=== PATIENT | female | born 1965 | race Caucasian/White ===

== ENCOUNTER 2018-02-01 16:08 | Emergency (ER) | payer OTHER, SELFPAY ==
--- NOTE | 2018-02-01 16:20 | DI.CT.S_ITS ---
PROCEDURE: CT HEAD/BRAIN WO CON INDICATIONS: stroke symptoms TECHNIQUE: Noncontrast 4.5 mm thick angled axial sections acquired from the foramen magnum to the vertex, with coronal and sagittal reformats. For radiation dose reduction, the following was used: automated exposure control, adjustment of mA and/or kV according to patient size. COMPARISON: None. FINDINGS: Image quality: Excellent. CSF spaces: Basal cisterns are patent. No extra-axial fluid collections. Ventricles are normal in size and shape. Brain: No midline shift. No intracranial masses or hemorrhage. Sigala-white matter interface is normal. Skull and face: Calvarium and visualized facial bones are intact, without suspicious lesions. Sinuses: Visualized sinuses and mastoids are clear. IMPRESSION: No acute intracranial process. 1 cm left parietal scalp subcutaneous nodule with calcification, nonspecific. Please correlate clinically and with direct visual inspection. Dictated by: Narinder Sandoval M.D. on 02/01/2018 at 16:24 Approved by: Narinder Sandoval M.D. on 02/01/2018 at 16:26
[2018-02-01 16:22] VITALS: BP 207/105; PULSE 88; RESP 17; TEMP 36.9; O2SAT 100; BMI 34.4
--- NOTE | 2018-02-01 16:41 | DI.US.S_ITS ---
PROCEDURE: US CAROTID DOPPLER BI INDICATIONS: TIA TECHNIQUE: Color and pulse Doppler interrogation was performed of both carotid systems, with image documentation and velocity measurements. COMPARISON: [facility], CT, CT HEAD/BRAIN WO CON, 02/01/2018, 16:10. FINDINGS: Stenosis calculations are based on SRU (Society of Radiologists in Ultrasound) criteria. The flow velocities and the arterial waveforms are normal within both carotid arterial systems. The estimated degree of internal carotid artery stenosis is less than 50%. Antegrade flow is confirmed within both vertebral arteries. IMPRESSION: No hemodynamically significant stenosis is seen. Dictated by: Isidro Eid M.D. on 02/01/2018 at 16:24 Approved by: Isidro Eid M.D. on 02/01/2018 at 16:24
[2018-02-01 16:49] VITALS: BP 170/94; PULSE 84; RESP 17; O2SAT 100
[2018-02-01 16:50] LABS: Add Manual Diff / Slide Review NO; Basophils Percent Auto 0.8 % (0-2); Eosinophils Percent Auto 2.5 % (2-4); Hematocrit 42.4 % (36-46); Hemoglobin 14.9 g/dL (12.0-16.0); Lymphocytes Percent Auto 24.7 % (25-40); Mean Corpuscular HGB Conc 35.2 % (30-36); Mean Corpuscular Hemoglobin 30.7 PG (26-34); Mean Corpuscular Volume 87.3 fL (80-100); Monocytes Percent Auto 7.6 % (3-14); Neutrophils Absolute Auto 6200 /uL (3000-5900); Neutrophils Percent Auto 64.4 % (50-75); Platelet Count 237 X10^3/uL (150-400); Red Blood Cell Count 4.86 X10^6/uL (4.0-5.2); Red Cell Distribution Width 12.7 % (11.6-14.8); White Blood Cell Count 9.7 X10^3/uL (4.5-11.0)
[2018-02-01 16:51] LABS: INR 1.4 (0.9-1.3); Prothrombin Time 15.3 SECONDS (10.1-12.7)
[2018-02-01 16:55] LABS: Alanine Aminotransferase 41 IU/L (9-52); Albumin Globulin Ratio 1.5 (1.0-2.8); Alkaline Phosphatase 106 U/L (38-126); Aspartate Aminotransferase 32 IU/L (14-36); BUN Creatinine Ratio 24.3 (6-22); Bilirubin Total 0.7 mg/dL (0.2-1.3); Blood Urea Nitrogen 17 mg/dL (7-17); Calcium 9.6 mg/dL (8.4-10.2); Carbon Dioxide 27 mmol/L (22-32); Chloride 101 mmol/L (98-107); Estimated Glomerular Filt Rate > 60.0 mL/min (>60); Globulin 3.3 g/dL (1.7-4.1); Glucose 99 mg/dL (70-100); HEMOLYSIS < 15 (0-50); Potassium 4.2 mmol/L (3.4-5.1); Sodium 142 mmol/L (137-145); Total Protein 8.3 g/dL (6.3-8.2)
--- NOTE | 2018-02-01 17:07 | ED.NEUROSD ---
HPI - Neuro Symptoms/Deficit General Chief Complaint: Neuro Symptoms/Deficit Stated Complaint: tingling sensations right side of body Time Seen by Provider: 02/01/18 16:19 Source: patient Mode of arrival: ambulatory Limitations: no limitations History of Present Illness HPI Narrative: Patient states she was driving her car, when she began to notice a sharp pain in her right shoulder. This occurred about 45 min ago. Patient states she got a tingling sensation in her hand and also tingling sensation in her right toes. She states it felt as though her toes were cramping up. She states that then her arm began to feel weak. She denies any other neurologic symptoms. No facial weakness, difficulty speaking or swallowing, or visual changes. She did not have any left-sided symptoms. She did not have any trouble with her gait. She does note that it was difficult for her to completely hold onto things for a few minutes. She states that she is now feeling mostly better, although she has a slight feeling of tingling in her fingers and that her shoulder still hurts somewhat. She denies any nausea or vomiting; no right upper quadrant abdominal pain. No chest pain or shortness of breath. Patient has never had symptoms like this before. She states that she has no personal history of illness. She states she does have a grandfather who had a stroke but otherwise, no primary relatives with either coronary artery disease or cerebral vascular accident at any level. On Anticoagulants: No Related Data Previous Rx's Medication Instructions Recorded meloxicam 15 mg tablet 15 mg PO [facility] #30 tab 11/01/17 Allergies Allergy/AdvReac Type Severity Reaction Status Date / Time erythromycin base Allergy Mild Unverified 08/31/17 13:00 Review of Systems Review of Systems All systems reviewed & are unremarkable except as noted in HPI and below Constitutional Denies chills, Denies fever(s), Denies lethargy and Reports weakness (Right arm now resolved) Eyes Denies change in vision, Denies eye discharge, Denies irritation and Denies loss of vision ENT Ears, Nose, Mouth, and Throat: Denies change in voice, Denies neck pain and Denies sore throat Cardiovascular Denies chest pain, Denies irregular heart rhythm, Denies lightheadedness, Denies palpitations, Denies dyspnea, Denies dyspnea on exertion and Denies orthopnea Respiratory Denies cough, Denies dyspnea, Denies dyspnea on exertion and Denies wheezing Gastrointestinal Gastrointestinal: Denies abdominal pain, Denies change in bowel habits, Denies diarrhea, Denies nausea and Denies vomiting Genitourinary Denies hematuria, Denies flank pain, Denies urinary incontinence and Denies urinary urgency Musculoskeletal Denies neck pain Comments: Right shoulder pain Integumentary/Breasts Denies pruritus, Denies erythema, Denies rash and Denies wounds Neurologic Denies confusion, Denies loss of vision and Reports weakness (Right arm now resolved) Psychiatric Denies anxiety, Denies confusion, Denies depression, Denies homicidal ideation and Denies suicidal ideation Endocrine Denies palpitations Hematologic/Lymphatic Denies easy bruising Allergic/Immunologic Denies wheezing FOR[facility]LY [facility] Medical History Healthy adult (Acute) Surgical History History of hip replacement (02/10/05) History of hip replacement (07/12/07) Status post delivery Status post delivery Status post sclerotherapy of varicose veins Status post tonsillectomy and adenoidectomy Social History Smoking Status: Never smoker Exam Initial Vital Signs Initial Vital Signs: Vital Signs Temperature 98.4 F 02/01/18 16:22 Pulse Rate 88 02/01/18 16:22 Respiratory Rate 17 02/01/18 16:22 Blood Pressure 207/105 H 02/01/18 16:22 Pulse Oximetry 100 02/01/18 16:22 Const General: cooperative and well developed Nutritional Appearance: well nourished Orientation: alert, awake, oriented x3 and not confused [facility] Head: normocephalic and atraumatic Ears: external ears normal Nose: external nose normal and No nasal discharge Face and sinus: face symmetric and No dry mucous membranes Mouth: oral mucosae normal and moist mucous membranes Eyes General: appearance normal, both eyes and all related structures Eyelids: eyelids normal Conjunctivae: conjunctivae normal Sclera: sclerae normal Pupils: PERRL EOM: EOM intact bilaterally Neck Neck: normal visual inspection, trachea midline, No lymphadenopathy, No midline deformity and No JVD Lymphatic: No lymphedema Chest Chest: normal inspection of the chest Resp Effort & Inspection: normal respiratory effort, able to speak in complete sentences, no respiratory distress and no use of accessory muscles Auscultation: clear to auscultation bilaterally, no rales, no rhonchi and no wheezes Cardio Rate: regular rate Rhythm: regular rhythm Heart Sounds: no click, no gallops, no murmurs and no rubs Pulses: normal peripheral pulses GI Inspection: non-distended Palpation: soft, no hepatosplenomegaly, No guarding, No pulsatile mass and No tender Auscultation: normal bowel sounds Back/Spine/Pelvis Back: No CVA tenderness Cervical Spine: cervical ROM normal and No pain with cervical ROM Thoracic/Lumbar Spine: thoracic and lumbar spine normal to inspection Skin General: no rashes or lesions noted, No jaundice and No petechiae Neuro General: alert, awake, oriented x3, gait normal, moves all extremities and no focal motor deficits Cranial Nerves: EOM intact bilaterally Cognition: normal cognition Speech: speech normal Motor: muscle tone normal throughout and strength 5/5 throughout Sensory Exam: no sensory deficits noted Extrem General: full ROM, no clubbing, cyanosis or edema, no pedal edema and no calf tenderness Psych Appearance: well kempt Mental Status: mental status grossly normal Attitude: cooperative Thought Content: normal and suicidality Judgment: judgment good Course Course Narrative: This patient was evaluated upon arrival by myself as a code stroke. She was immediately sent for CT of the head, which was found to be negative. Patient's symptoms were already mostly resolved, and had been mild did begin with, and as such, she was not a candidate for tPA. Patient was worked up with laboratory studies, as well as CT, and these were found to be unremarkable. I did go ahead and get a carotid ultrasound on the patient which showed no significant blockages. I did discuss with the patient that her symptoms are atypical for a stroke and that the shoulder pain would be unexpected. It is possible the patient has a nerve impingement which has caused her pain, paresthesias, and neurapraxia; however, I have discussed with the patient that it is important for her to follow up with her primary care physician to get set up for an echocardiogram to complete the stroke workup. Given that the patient has no murmurs or irregular heart beat, I feel that it is unlikely that the patient has any sort of plaque or thrombosis harbored in her chambers or on her valves. Patient is advised that she should take an aspirin a day for preventative purposes. She states she will call her primary care physician tomorrow. Orders Ordered: ED Orders 02/01/18 16:20 CT head/brain wo con Stat 02/01/18 16:30 Complete Blood Count AUTO DIFF Stat Comprehensive Metabolic Panel Stat Prothrombin Time INR Stat 02/01/18 16:41 US carotid doppler BI Stat Vital Signs - 8 hr 02/01/18 16:22 02/01/18 16:49 Temperature 98.4 F Pulse Rate 88 84 Respiratory Rate 17 17 Blood Pressure 207/105 H Blood Pressure [Right Arm] 170/94 H Pulse Oximetry 100 100 MDM - Neuro Symptoms/Deficit Medical Records Attestation: I reviewed the patient's medical records. Lab Data Attestation: I reviewed the patient's lab results. Result diagrams: 02/01/18 16:30 02/01/18 16:30 Lab Results 02/01/18 02/01/18 02/01/18 Range/Units 16:30 16:30 16:30 WBC 9.7 (4.5-11.0) X10^3/uL RBC 4.86 (4.0-5.2) X10^6/uL Hgb 14.9 (12.0-16.0) g/dL Hct 42.4 (36-46) % MCV 87.3 (80-100) fL MCH 30.7 (26-34) PG MCHC 35.2 (30-36) % RDW 12.7 (11.6-14.8) % Plt Count 237 (150-400) X10^3/uL Neut % (Auto) 64.4 (50-75) % Lymph % (Auto) 24.7 L (25-40) % Pitkin % (Auto) 7.6 (3-14) % Eos % (Auto) 2.5 (2-4) % Baso % (Auto) 0.8 (0-2) % Neut # (Auto) 6200 H (5105-5679) /uL PT 15.3 H (10.1-12.7) SECONDS INR 1.4 H (0.9-1.3) Sodium 142 (137-145) mmol/L Potassium 4.2 (3.4-5.1) mmol/L Chloride 101 (98-107) mmol/L Carbon Dioxide 27 (22-32) mmol/L BUN 17 (7-17) mg/dL Creatinine 0.70 (0.52-1.04) mg/dL Estimated GFR > 60.0 (>60) mL/min BUN/Creatinine Ratio 24.3 H (6-22) Glucose 99 (70-100) mg/dL Calcium 9.6 (8.4-10.2) mg/dL Total Bilirubin 0.7 (0.2-1.3) mg/dL AST 32 (14-36) IU/L ALT 41 (9-52) IU/L Alkaline Phosphatase 106 (38-126) U/L Total Protein 8.3 H (6.3-8.2) g/dL Albumin 5.0 (3.5-5.0) g/dL Globulin 3.3 (1.7-4.1) g/dL Albumin/Globulin Ratio 1.5 (1.0-2.8) Imaging Data CT scan - head: Attestation: I personally reviewed and interpreted this imaging study as follows: My impression: Negative Radiologist's impression: PROCEDURE: CT HEAD/BRAIN WO CON INDICATIONS: stroke symptoms TECHNIQUE: Noncontrast 4.5 mm thick angled axial sections acquired from the foramen magnum to the vertex, with coronal and sagittal reformats. For radiation dose reduction, the following was used: automated exposure control, adjustment of mA and/or kV according to patient size. COMPARISON: None. FINDINGS: Image quality: Excellent. CSF spaces: Basal cisterns are patent. No extra-axial fluid collections. Ventricles are normal in size and shape. Brain: No midline shift. No intracranial masses or hemorrhage. Sigala-white matter interface is normal. Skull and face: Calvarium and visualized facial bones are intact, without suspicious lesions. Sinuses: Visualized sinuses and mastoids are clear. IMPRESSION: No acute intracranial process. 1 cm left parietal scalp subcutaneous nodule with calcification, nonspecific. Please correlate clinically and with direct visual inspection. Dictated by: Narinder Sandoval M.D. on 02/01/2018 at 16:24 Approved by: Narinder Sandoval M.D. on 02/01/2018 at 16:26 Carotid Doppler: Radiologist's impression: PROCEDURE: US CAROTID DOPPLER BI INDICATIONS: TIA TECHNIQUE: Color and pulse Doppler interrogation was performed of both carotid systems, with image documentation and velocity measurements. COMPARISON: [facility], CT, CT HEAD/BRAIN WO CON, 02/01/2018, 16:10. FINDINGS: Stenosis calculations are based on SRU (Society of Radiologists in Ultrasound) criteria. The flow velocities and the arterial waveforms are normal within both carotid arterial systems. The estimated degree of internal carotid artery stenosis is less than 50%. Antegrade flow is confirmed within both vertebral arteries. IMPRESSION: No hemodynamically significant stenosis is seen. Dictated by: Isidro Eid M.D. on 02/01/2018 at 16:24 Approved by: Isidro Eid M.D. on 02/01/2018 at 16:24 Discharge Plan Departure Patient Disposition: Home Clinical Impression: Acute shoulder pain, Arm paresthesia, right, Weakness of right arm Discharge Date/Time: 02/01/18 17:58 Interventions: ED Discharge Assessment Last Done: 02/01/18 17:57 Instructions: DI for Transient Ischemic Attack, DI for Shoulder Pain Activity Restrictions/Additional Instructions: Your symptoms are not typical of a heart attack or a stroke; however, given that you did have the weakness of your right arm, you have been worked up initially for the possibility of a small, transient stroke. So far, testing has all been normal. There is no sign of any blockage in your carotid arteries, and there is no evidence of damage to your brain. However, it is important that you follow up with your primary doctor to discuss the possibility of getting and echocardiogram (heart ultrasound), which will show any blood clots that may be breaking loose and going to your brain. Given that you have no irregular heartbeat or heart murmur, the likelihood of blood clots being present is low, but needs to be checked out just to be sure. Prescriptions: No Action meloxicam [Mobic] 15 mg tablet 15 mg PO [facility] Qty: 30 RF: 2 Referrals: Katarzyna Dunne ARNP [Primary Care Provider] - ( Please call your doctor's office tomorrow morning to set up a follow-up appointment , and discuss getting an echocardiogram.)
[2018-02-01 17:23] VITALS: BP 127/73; PULSE 74; RESP 13; O2SAT 99
[2018-02-01 17:57] VITALS: BP 147/89; PULSE 74; RESP 15; TEMP 36.4; O2SAT 100
== END 2018-02-01 17:58 | disposition home or self-care (01) ==
PROVIDERS: Emergency Provider Emergency Medicine; Family Provider Internal Medicine; PCP Internal Medicine
DX: M25.511 Pain in right shoulder (principal); R20.2 Paresthesia of skin; R29.898 Other symptoms and signs involving the musculoskeletal system
CPT/HCPCS: 36591; 70450; 80053; 85025; 85610; 93005; 93041; 93880; 99283; 99285; 99291

== ENCOUNTER → 2018-02-13 10:42 | Outpatient (CLI) | payer OTHER, SELFPAY ==
[2018-02-13 11:36] LABS: Cholesterol 214 mg/dL (140-199); HDL Cholesterol 52 mg/dL (40-60); LDL Cholesterol Calculated 128 mg/dL (<100); Triglycerides 170 mg/dL (35-150)
[2018-02-13 12:02] LABS: Thyroid Stimulating Hormone 0.92 uIU/mL (0.47-4.68)
== END ==
PROVIDERS: Family Provider Internal Medicine; PCP Internal Medicine; Visit Provider Internal Medicine
DX: E78.5 Hyperlipidemia, unspecified (principal)
CPT/HCPCS: 36415; 80061; 84443

== ENCOUNTER → 2018-06-12 13:24 | Outpatient (CLI) | payer OTHER, SELFPAY ==
--- NOTE | 2018-06-12 | DI.MG.S_ITS ---
BILATERAL DIGITAL SCREENING MAMMOGRAM 3D/2D WITH CAD: 06/12/2018 CLINICAL: Routine screening. Comparison is made to exams dated: 05/06/2017 mammogram, 04/07/2015 mammogram, and 04/01/2014 mammogram - [facility]. There are scattered fibroglandular elements in both breasts. Current study was also evaluated with a Computer Aided Detection (CAD) system. There are benign calcifications in both breasts. No significant masses, calcifications, or other findings are seen in either breast. There has been no significant interval change. IMPRESSION: There is no mammographic evidence of malignancy. A 1 year screening mammogram is recommended. This exam was interpreted at Station ID: [id number]. NOTE: For mammograms, a report in lay terms will be sent to the patient. Approximately 15% of breast malignancies will not be visualized mammographically. In the management of a palpable breast mass, a negative mammogram must not discourage biopsy of a clinically suspicious lesion. Electronically Signed By: Lyle roberts/ced:06/13/2018 01:39:32 letter sent: Normal Exam ACR BI-RADS Category 2: Benign Finding(s) 3342F
== END ==
PROVIDERS: Family Provider Internal Medicine; PCP Internal Medicine; Visit Provider Internal Medicine
DX: Z12.31 Encounter for screening mammogram for malignant neoplasm of breast (principal)
CPT/HCPCS: 77063; 77067

== ENCOUNTER → 2018-10-20 14:54 | Outpatient (CLI) | payer OTHER, SELFPAY ==
--- NOTE | 2018-10-20 14:56 | DI.RAD.S_ITS ---
PROCEDURE: XR CHEST 2V INDICATIONS: Cough with fever TECHNIQUE: 2 views of the chest were acquired. COMPARISON: None. FINDINGS: Surgical changes and devices: None. Lungs and pleura: Lungs are clear. No pleural effusions or pneumothorax. Mediastinum: Mediastinal contours are normal. Heart size is normal. Bones and chest wall: No suspicious bony abnormalities. Soft tissues appear unremarkable. IMPRESSION: No acute disease Dictated by: Narinder Sandoval M.D. on 10/20/2018 at 14:19 Approved by: Narinder Sandoval M.D. on 10/20/2018 at 14:21
== END ==
PROVIDERS: Family Provider Internal Medicine; PCP Internal Medicine; Visit Provider Registered Nurse
DX: R05 Cough (principal); R50.9 Fever, unspecified
CPT/HCPCS: 71046

== ENCOUNTER → 2018-12-20 09:16 | Outpatient (CLI) | payer OTHER, SELFPAY ==
[2018-12-20 10:35] LABS: BUN Creatinine Ratio 23.3 (6-22); Blood Urea Nitrogen 14 mg/dL (7-17); Calcium 9.6 mg/dL (8.4-10.2); Carbon Dioxide 30 mmol/L (22-32); Chloride 103 mmol/L (98-107); Cholesterol 221 mg/dL (140-199); Estimated Glomerular Filt Rate > 60.0 mL/min (>60); Glucose 92 mg/dL (70-100); HDL Cholesterol 46 mg/dL (40-60); HEMOLYSIS < 15 (0-50); LDL Cholesterol Calculated 127 mg/dL (<100); Potassium 4.7 mmol/L (3.4-5.1); Sodium 142 mmol/L (137-145); Triglycerides 238 mg/dL (35-150)
[2018-12-20 11:01] LABS: Thyroid Stimulating Hormone 2.02 uIU/mL (0.47-4.68)
== END ==
PROVIDERS: PCP Registered Nurse; Visit Provider Registered Nurse
DX: Z00.00 Encounter for general adult medical examination without abnormal findings (principal)
CPT/HCPCS: 36415; 80048; 80061; 84443

== ENCOUNTER → 2019-10-22 16:12 | Outpatient (CLI) | payer OTHER, SELFPAY ==
--- NOTE | 2019-10-22 16:17 | DI.RAD.S_ITS ---
PROCEDURE: XR CHEST 2V INDICATIONS: SHORTNESS OF BREATH,SMOKER TECHNIQUE: 2 views of the chest were acquired. COMPARISON: [facility], CR, XR CHEST 2V, 10/20/2018, 14:59. FINDINGS: Surgical changes and devices: None. Lungs and pleura: Lungs are clear, aside from minimal linear radiodensities involving the left lung base.. No pleural effusions or pneumothorax. Mediastinum: Mediastinal contours are normal. Heart size is normal. Bones and chest wall: No suspicious bony abnormalities. Soft tissues appear unremarkable. IMPRESSION: Linear radiodensities involving the left lung base which may be related to scarring; however atelectasis or developing pneumonia cannot be excluded and close clinical correlation and followup is recommended. Comparison with remote radiographs if available would be helpful. Dictated by: Pelon Morris [facility] Interpreted: Chad Rutherford MD on 10/22/2019 at 16:54 Approved by: Chad Rutherford M.D. on 10/22/2019 at 17:06
== END ==
PROVIDERS: PCP Registered Nurse; Referring Provider Internal Medicine; Visit Provider Internal Medicine
DX: R06.02 Shortness of breath (principal); F17.200 Nicotine dependence, unspecified, uncomplicated
CPT/HCPCS: 71046

== ENCOUNTER 2020-05-14 13:45 | Outpatient (RCR) | payer OTHER, SELFPAY ==
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
--- NOTE | 2020-02-26 15:08 | PT.OPPOC ---
Physical, Occupational & Speech Therapy At [facility] Current Diagnoses Displaced fracture of body of scapula, left shoulder, subsequent encounter for fracture with routine healing (02/26/20) Displaced spiral fracture of shaft of humerus, left arm, subsequent encounter for fracture with routine healing (02/26/20) Visit Care Team Role Provider Type LUDWIG Almanza Primary Care Provider Advanced Sales Representative [facility] Specialty: [facility] Address: [facility], [facility] [place], [address] Email: [email or web address] LUDWIG Pinon Attending Provider Non-Staff Referring Provider Specialty: [facility] Address: [address] [place] [address], [place], [address] Email: Plan Of Care PT-OP-T Assessment and Plan Start: 02/26/20 07:53 Freq: Status: Active Protocol: Document 02/26/20 12:45 AMB (Rec: 02/27/20 11:57 AMB [email or web address]) Physical Therapy Assessment Rehab Potential Rehabilitation Potential Good Evaluation Complexity Number of Personal Factors/Comorbidities 3 or More Number of Body Systems Impaired 4 or More Clinical Presentation at Evaluation Unstable Impairments Impairments Activity Tolerance,Edema, Functional Activities,Pain, Posture,ROM,Strength Goals Three Impairment Elbow ROM Short Term Goal (STG) Samanta will attain neutral elbow extension STG Duration 4 weeks Two Impairment Shoulder strength Skilled Nursing Goal (LTG) Samanta will lift a coffee cup to shoulder height. LTG Duration 12 weeks One Impairment Shoulder ROM Short Term Goal (STG) Samanta will have 90 degrees of passive shoulder flexion STG Duration 6 weeks Skilled Nursing Goal (LTG) Samanta will have 90 degrees of active shoulder flexion. LTG Duration 12 weeks Assessment Summary Assessment Samanta attends physical therapy with current displaced humerus fracture and a scapular fracture that was originally displaced and is now healed per patient report. Unfortunately I have been unable to get any records or protocol, so we did not assess her shoulder range. We did work on her scapular mobility and elbow stretches. When safe to do so, Samanta will need considerable shoulder stretching and strengthening. Currently she has been told not to lift anything more than the weight of a coffee cup, she thinks this is more due to her hand fracture than her shoulder. Physical Therapy Plan Frequency and Duration Frequency of Treatment 2x/Week Duration of Treatment 12 weeks Plan of Care Start Date 02/26/20 Plan of Care End Date 05/20/20 Therapeutic Interventions Therapeutic Interventions Home Exercise Program,Joint Mobilizations,Manual Therapy, Neuromuscular Re-education, Therapeutic Activities, Therapeutic Exercises Modalities Cold Pack/Ice Massage,Electric Stimulation,Hot Packs, Ultrasound Next Visit Focus/Plan Next Note Type Treatment Note Next Visit Plan Get notes/protocol from referring provider to assess if we can start with PROM of shoulder. JORGE SOW: PLEASE CALL THIS THERAPIST AT [phone]. I have tried to get medical records and call your office, but was put on hold for over 20 minutes and had to hang up to see patients . I need more information before treating this patient. I do not have access to any records. Plan of Care Dates Plan of Care Start Date 02/26/20 Plan of Care End Date 05/20/20 Electronically Signed by: Paula Huff, PT 02/27/20 0818 Please Sign and Return: I have reviewed this Plan of Care and certify that the skilled therapy services above are required to meet the patient?s needs. Physician Signature Date Printed Name and Credentials Clinical Instructor Signature Printed Name and Credentials
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
--- NOTE | 2020-04-23 14:00 | PT.OPPOC ---
Physical, Occupational & Speech Therapy At [facility] Current Diagnoses Displaced fracture of body of scapula, left shoulder, subsequent encounter for fracture with routine healing (04/23/20) Displaced spiral fracture of shaft of humerus, left arm, subsequent encounter for fracture with routine healing (04/23/20) Visit Care Team Role Provider Type LUDWIG Almanza Primary Care Provider Advanced Claim Representative Specialty: [facility] Address: [facility] [place], [address] Email: [email or web address] LUDWIG Pinon Attending Provider Non-Staff Referring Provider Specialty: [facility] Address: [address] [place] [address], [place], [address] Email: Plan Of Care PT-OP-T Assessment and Plan Start: 02/26/20 07:53 Freq: Status: Active Protocol: Document 04/23/20 12:45 AMB (Rec: 04/24/20 08:15 AMB [email or web address]) Physical Therapy Assessment Goals Three Impairment Elbow ROM Short Term Goal (STG) Samanta will attain neutral elbow extension STG Duration MET Two Impairment Shoulder strength [employer] Hand Goal (LTG) Samanta will lift a coffee cup to shoulder height.-- NOT MET- not currently allowed to do so because of fracture precautions LTG Duration 12 weeks One Impairment Shoulder ROM Short Term Goal (STG) Samanta will have 90 degrees of passive shoulder flexion STG Duration MET [employer] Hand Goal (LTG) Samanta will have 90 degrees of active shoulder flexion. LTG Duration 12 weeks Assessment Summary Assessment Samanta's ROM is fairly similar to what it was at [facility], although considering she is still wearing her brace, not allowed active movement, the fact that her ROM is not worse is reassuring. She will benefit from continued PT to continue to prevent adhesive capsulitis, try to progress her PROM as she can tolerate until she sees her doctor again at the end of May. Physical Therapy Plan Frequency and Duration Frequency of Treatment 2x/Week Duration of Treatment 12 weeks Plan of Care Start Date 04/23/20 Plan of Care End Date 07/16/20 Therapeutic Interventions Therapeutic Interventions Home Exercise Program,Joint Mobilizations,Manual Therapy, Neuromuscular Re-education, Therapeutic Activities, Therapeutic Exercises Modalities Cold Pack/Ice Massage,Electric Stimulation,Hot Packs, Ultrasound Next Visit Focus/Plan Next Note Type Treatment Note Next Visit Plan Continue with PROM and modalities/ manual therapy as tolerated Plan of Care Dates Plan of Care Start Date 04/23/20 Plan of Care End Date 07/16/20 Electronically Signed by: Paula Huff, PT 04/24/20 [id number] Please Sign and Return: I have reviewed this Plan of Care and certify that the skilled therapy services above are required to meet the patient?s needs. Physician Signature Date Printed Name and Credentials Clinical Instructor Signature Printed Name and Credentials
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
== END 2020-12-18 15:35 | disposition home or self-care (01) ==
LOC: PHYS 13:45
PROVIDERS: PCP Internal Medicine; Referring Provider Registered Nurse; Visit Provider Registered Nurse
DX: S42.112D Displaced fracture of body of scapula, left shoulder, subsequent encounter for fracture with routine healing (principal); S42.342D Displaced spiral fracture of shaft of humerus, left arm, subsequent encounter for fracture with routine healing
CPT/HCPCS: 97014; 97110; 97140; 97163; G0283

== ENCOUNTER → 2020-08-13 10:16 | Outpatient (CLI) | payer OTHER, SELFPAY ==
[2020-08-13 13:37] LABS: COVID19 -Nasal RAPID Negative (Negative)
== END ==
PROVIDERS: PCP Internal Medicine; Visit Provider Student in an Organized Health Care Education/Training Program
DX: Z20.822 Contact with and (suspected) exposure to COVID-19 (principal)
CPT/HCPCS: 87635

== ENCOUNTER 2021-02-02 14:30 | Outpatient (RCR) | payer OTHER, SELFPAY ==
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
--- NOTE | 2020-09-16 16:03 | PT.OPPOC ---
Physical, Occupational & Speech Therapy At [facility] Current Diagnoses Pain in left shoulder (09/16/20) Stiffness of left shoulder, not elsewhere classified (09/16/20) Paresthesia of skin (09/16/20) Displaced spiral fracture of shaft of humerus, left arm, subsequent encounter for fracture with routine healing (09/16/20) Visit Care Team Role Provider Type LUDWIG Almanza Family Provider Advanced Lcac Radar Operator/Navigator Primary Care Provider Specialty: Family Practice Address: [address] [place] [address] [place], [place], [facility] Email: [email or web address] Mike Downs MD, PHD Attending Provider Non-Staff Referring Provider Specialty: Medical Address: [address] [place] [address], [facility] Email: Plan Of Care PT-OP-T Assessment and Plan Start: 09/16/20 08:16 Freq: Status: Active Protocol: Document 09/16/20 08:15 AMB (Rec: 09/17/20 11:56 AMB [email or web address]) Physical Therapy Assessment Rehab Potential Rehabilitation Potential Good Evaluation Complexity Number of Personal Factors/Comorbidities 1-2 Number of Body Systems Impaired 4 or More Clinical Presentation at Evaluation Evolving Impairments Impairments Activity Tolerance,Functional Activities,Pain,Posture,ROM, Soft Tissue Mobility,Strength Goals Three Impairment Elbow ROM Short Term Goal (STG) Samanta will have full elbow flexion and extension. STG Duration 6 weeks Two Impairment Shoulder strength Short Term Goal (STG) Samanta will improve her strength so that she can lift the weight of her arm to 90 degrees flexion so that she can wash her hair. STG Duration 6 weeks First Sampler Goal (LTG) Samanta will improve her strength so she can lift a bag of groceries to the kitchen counter without shoulder pain. LTG Duration 12 weeks One Impairment Shoulder ROM Short Term Goal (STG) Samanta will improve her shoulder flexion PROM to 150 degrees. STG Duration 6 weeks First Sampler Goal (LTG) Samanta will improve her shoulder abduction AROM to 90 degrees. LTG Duration 12 weeks Assessment Summary Assessment Samanta attends physical therapy a month s/p surgery for non- union fx of L humerus after having limited ROM from being in a splint for 7 months post fx. She attends with significant weakness and range of motion restriction and continues to have weightbearing precautions. She also has L hand burning paresthesias and will benefit from desensitization training for that. She will likely need extensive manual therapy and instruction in exercise progression considering how stiff and weak her shoulder has become. Physical Therapy Plan Frequency and Duration Frequency of Treatment 2x/Week Duration of Treatment 12 weeks Plan of Care Start Date 09/16/20 Plan of Care End Date 12/02/20 Therapeutic Interventions Therapeutic Interventions Home Exercise Program,Joint Mobilizations,Manual Therapy, Neuromuscular Re-education, Self-Care/Home Management, Therapeutic Activities, Therapeutic Exercises Modalities Cold Pack/Ice Massage,Electric Stimulation,Hot Packs, Ultrasound Next Visit Focus/Plan Next Note Type Treatment Note Next Visit Plan Instruct in ROM HEP, follow up on hand desensitization training Plan of Care Dates Plan of Care Start Date 09/16/20 Plan of Care End Date 12/02/20 Electronically Signed by: Paula Huff, PT 09/17/20 [id number] Please Sign and Return: I have reviewed this Plan of Care and certify that the skilled therapy services above are required to meet the patient?s needs. Physician Signature Date Printed Name and Credentials Clinical Instructor Signature Printed Name and Credentials
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
--- NOTE | 2020-10-24 10:03 | PT-OP ANOTE ---
Pt called in and cancelled appt since she is sick,.
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
--- NOTE | 2020-11-14 15:31 | PT.OPPOC ---
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 Primary Care Provider Specialty: Family Practice Address: [address] [place] [address], [facility] [place], [place], [facility] Email: [email or web address] Mike Downs MD, PHD Attending Provider Non-Staff Referring Provider Specialty: Medical Address: [address] [place] [address], [facility] Email: Plan Of Care PT-OP-T Assessment and Plan Start: 09/16/20 08:16 Freq: Status: Active Protocol: Document 11/14/20 13:30 AMB (Rec: 11/14/20 15:28 AMB [email or web address]) Physical Therapy Assessment Goals Three Impairment Elbow ROM Short Term Goal (STG) Samanta will have full elbow flexion and extension. STG Duration 6 weeks Two Impairment Shoulder strength Short Term Goal (STG) Samanta will improve her strength so that she can lift the weight of her arm to 90 degrees flexion so that she can wash her hair. STG Duration PARTIALLY MET- ROM Goal met but difficult to wash hair with left hand [facility] Goal (LTG) Samanta will improve her strength so she can lift a bag of groceries to the kitchen counter without shoulder pain. LTG Duration 12 weeks One Impairment Shoulder ROM Short Term Goal (STG) Samanta will improve her shoulder flexion PROM to 150 degrees. STG Duration 6 weeks [facility] Goal (LTG) Samanta will improve her shoulder abduction AROM to 90 degrees. LTG Duration MET Assessment Summary Assessment Pt with better pec mobility today, strength is improving, and ROM is improving but slowly. Overall Samanta continues to benefit from physical therapy as she will be returning to work and will likely have more pain from that. Although in the long run it will be good for her to move her shoulder more to improve her shoulder mobility. Physical Therapy Plan Frequency and Duration Frequency of Treatment 2x/Week Duration of Treatment 8 weeks Plan of Care Start Date 11/14/20 Plan of Care End Date 01/09/21 Therapeutic Interventions Therapeutic Interventions Home Exercise Program,Joint Mobilizations,Manual Therapy, Neuromuscular Re-education, Self-Care/Home Management, Therapeutic Activities, Therapeutic Exercises Modalities Cold Pack/Ice Massage,Electric Stimulation,Hot Packs, Ultrasound Next Visit Focus/Plan Next Note Type Treatment Note Next Visit Plan Reassess tingling Plan of Care Dates Plan of Care Start Date 11/14/20 Plan of Care End Date 01/09/21 Electronically Signed by: Paula Huff, PT 11/14/20 1346 Please Sign and Return: I have reviewed this Plan of Care and certify that the skilled therapy services above are required to meet the patient?s needs. Physician Signature Date Printed Name and Credentials Clinical Instructor Signature Printed Name and Credentials
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
--- NOTE | 2021-01-15 16:59 | PT.OPPOC ---
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 Primary Care Provider Specialty: Family Practice Address: [address] [place] [address], [facility] [place], [place], [facility] Email: [email or web address] [email or web address] MD, PHD Attending Provider Non-Staff Referring Provider Specialty: Medical Address: [address] [place] [address], [facility] Email: Plan Of Care PT-OP-T Assessment and Plan Start: 09/16/20 08:16 Freq: Status: Active Protocol: Document 01/15/21 16:40 AW (Rec: 01/15/21 16:11 AW [id number]) Physical Therapy Assessment Goals Three Impairment Elbow ROM Short Term Goal (STG) Samanta will have full elbow flexion and extension. STG Duration PARTIALLY MET- full extension, 126d flexion Two Impairment Shoulder strength Short Term Goal (STG) Samanta will improve her strength so that she can lift the weight of her arm to 90 degrees flexion so that she can wash her hair. STG Duration PARTIALLY MET- ROM Goal met but difficult to wash hair with left hand Pediatric Nephrologist Goal (LTG) Samanta will improve her strength so she can lift a bag of groceries to the kitchen counter without shoulder pain. 01/15/21 PROGRESS: Pt can now carry six shopping baskets at work but can not lift them to counter height. LTG Duration 12 weeks One Impairment Shoulder ROM Short Term Goal (STG) Samanta will improve her shoulder flexion PROM to 150 degrees. STG Duration 6 weeks Pediatric Nephrologist Goal (LTG) Samanta will improve her shoulder abduction AROM to 90 degrees. LTG Duration MET Progress Towards Goals Progress Towards Goals Progressing Toward Goals Progress Comments Pt has met many of her goals but remains limited in strength. She would benefit from additional visits to progress strength for maximal function at work and for ADL's . Assessment Summary Assessment Pain continues to improve. AROM has improved enough for her to be able to wash her hair - though with some pain. Strength deficits continue. Physical Therapy Plan Frequency and Duration Frequency of Treatment 1-2x / week Duration of Treatment 6 weeks Plan of Care Start Date 01/15/21 Plan of Care End Date 02/26/21 Therapeutic Interventions Therapeutic Interventions Home Exercise Program,Joint Mobilizations,Manual Therapy, Neuromuscular Re-education, Self-Care/Home Management, Therapeutic Activities, Therapeutic Exercises Modalities Cold Pack/Ice Massage,Electric Stimulation,Hot Packs, Ultrasound Next Visit Focus/Plan Next Note Type Treatment Note Next Visit Plan Progress ROM/strengthening, per pt can lift up to 20#. Plan of Care Dates Plan of Care Start Date 01/15/21 Plan of Care End Date 02/26/21 Electronically Signed by: Eleanor Solis, PT 01/15/21 [id number] Please Sign and Return: I have reviewed this Plan of Care and certify that the skilled therapy services above are required to meet the patient?s needs. Physician Signature Date Printed Name and Credentials Clinical Instructor Signature Printed Name and Credentials
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
--- NOTE | 2021-01-28 16:16 | PT-OP ANOTE ---
Contacted pt at 1615 for missed appointment at 1600. She was in the middle of grocery shopping and could not make it in soon enough for a short visit. Reminded pt of attendance policy and of next appointment on Tuesday.
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
== END 2021-02-03 11:04 | disposition home or self-care (01) ==
LOC: PHYS 14:30
PROVIDERS: Family Provider Internal Medicine; PCP Internal Medicine; Referring Provider Orthopaedic Surgery Orthopaedic Surgery of the Spine; Visit Provider Orthopaedic Surgery Orthopaedic Surgery of the Spine
DX: S42.342D Displaced spiral fracture of shaft of humerus, left arm, subsequent encounter for fracture with routine healing (principal); M25.512 Pain in left shoulder; M25.612 Stiffness of left shoulder, not elsewhere classified; R20.2 Paresthesia of skin
CPT/HCPCS: 97010; 97014; 97110; 97140; 97162; G0283

== ENCOUNTER → 2021-06-01 17:56 | Outpatient (CLI) | payer OTHER, SELFPAY ==
--- NOTE | 2021-06-01 | DI.MG.S_ITS ---
BILATERAL DIGITAL SCREENING MAMMOGRAM 3D/2D WITH CAD: 06/01/2021 CLINICAL: Routine screening. Comparison is made to exams dated: 06/12/2018 mammogram, 05/06/2017 mammogram, and 04/07/2015 mammogram - [facility]. There are scattered fibroglandular elements in both breasts. Current study was also evaluated with a Computer Aided Detection (CAD) system. There are benign calcifications in both breasts. No significant masses, calcifications, or other findings are seen in either breast. There has been no significant interval change. IMPRESSION: BENIGN There is no mammographic evidence of malignancy. A 1 year screening mammogram is recommended. This exam was interpreted at Station ID: [id number]. NOTE: For mammograms, a report in lay terms will be sent to the patient. Approximately 15% of breast malignancies will not be visualized mammographically. In the management of a palpable breast mass, a negative mammogram must not discourage biopsy of a clinically suspicious lesion. Electronically Signed By: Leeanna españa/ced:06/02/2021 08:53:21 letter sent: Normal Exam ACR BI-RADS Category 2: Benign Finding(s) [id number]
== END ==
PROVIDERS: Family Provider Internal Medicine; PCP Internal Medicine; Referring Provider Internal Medicine; Visit Provider Internal Medicine
DX: Z12.31 Encounter for screening mammogram for malignant neoplasm of breast (principal)
CPT/HCPCS: 77063; 77067

== ENCOUNTER → 2021-06-08 09:12 | Outpatient (CLI) | payer OTHER, SELFPAY ==
--- NOTE | 2021-06-08 | DI.RAD.S_ITS ---
PROCEDURE: XR HUMERUS LT 2V INDICATIONS: LEFT UPPER ARM PAIN, HX OF FRACTURE TECHNIQUE: Left views of the humerus were acquired. COMPARISON: None. FINDINGS: Bones: There are postoperative changes of sideplate and screw fixation of the humerus. No perihardware lucency or hardware fracture. There are degenerative changes of the left shoulder. No suspicious bony lesions. Soft tissues: No suspicious soft tissue calcifications. IMPRESSION: Postoperative changes of left humerus ORIF without complication. Dictated by: Justus Sheth M.D. on 06/08/2021 at 12:20 Approved by: Justus Sheth M.D. on 06/08/2021 at 12:22
== END ==
PROVIDERS: Family Provider Internal Medicine; PCP Internal Medicine; Referring Provider Internal Medicine; Visit Provider Internal Medicine
DX: S42.302D Unspecified fracture of shaft of humerus, left arm, subsequent encounter for fracture with routine healing (principal); M79.602 Pain in left arm
CPT/HCPCS: 73060

== ENCOUNTER 2021-10-04 17:20 | Emergency (ER) | payer OTHER, SELFPAY ==
[2021-10-04 17:33] VITALS: BP 134/80; PULSE 77; RESP 18; TEMP 36.8; O2SAT 97
--- NOTE | 2021-10-04 19:29 | ED.SKABFB ---
HPI - Skin/Abscess/Foreign Bdy <Tommy Motley PA-C - Last Filed: 10/04/21 19:39> General Chief complaint: Skin/Abscess/Foreign Body Stated complaint: Shingles Time Seen by Provider: 10/04/21 19:21 Source: patient Mode of arrival: Ambulatory History of Present Illness HPI narrative: Patient is a 56-year-old female who presents to the ED complaining of pain and a blistering rash that started 2 days ago. She has noticed it along her left groin and she is describing it to be painful to start that has progressed today to be more itching. She believes it to be shingles and is presenting to be evaluated and treated. She denies any fever body aches chills nausea vomiting or diarrhea. Patient states that she has not received her shingles vaccine, she did have chickenpox as a child. Related Data Previous Rx's Medication Instructions Recorded albuterol sulfate 90 mcg/actuation 1 puff INHALATION Q4-6H PRN #18 11/10/18 aerosol inhaler (Ventolin HFA) gram amoxicillin 500 mg tablet 500 mg PO BID #10 tab 05/09/19 dextromethorphan-guaifenesin ER 60 1 tab PO Q12H #30 tab 05/09/19 mg-1,200 mg tab,extend release,12hr (Mucinex DM) meloxicam 15 mg tablet (Mobic) 15 mg PO AMCC #30 tab 07/02/19 acyclovir 800 mg tablet 800 mg PO 5XD 7 Days #35 tab 10/04/21 Allergies Allergy/AdvReac Type Severity Reaction Status Date / Time erythromycin base Allergy Mild Verified 05/09/19 11:36 morphine Allergy Verified 10/04/21 17:36 Review of Systems <Tommy Motley PA-C - Last Filed: 10/04/21 19:39> Review of Systems ROS Unobtainable: All systems reviewed & are unremarkable except as noted in HPI and below Constitutional Constitutional: Denies chills, Denies fatigue, Denies fever(s), Denies frequent falls, Denies lethargy and Denies weakness Eyes Eyes: Denies change in vision, Denies eye discharge, Denies irritation and Denies loss of vision ENT Ears, Nose, Mouth, and Throat: Denies change in voice, Denies dizziness, Denies neck pain, Denies sore throat and Denies throat swelling Cardiovascular Cardiovascular: Denies chest pain, Denies irregular heart rhythm, Denies lightheadedness, Denies palpitations, Denies dyspnea, Denies dyspnea on exertion and Denies orthopnea Respiratory Respiratory: Denies cough, Denies dyspnea, Denies dyspnea on exertion and Denies wheezing Gastrointestinal Gastrointestinal: Denies abdominal pain, Denies change in bowel habits, Denies diarrhea, Denies nausea and Denies vomiting Genitourinary Genitourinary: Denies hematuria, Denies flank pain, Denies urinary incontinence and Denies urinary urgency Musculoskeletal Musculoskeletal: Denies back pain, Denies muscle weakness, Denies neck pain, Denies numbness and Denies tingling Integumentary/Breasts Skin/Breast: Denies pruritus, Denies erythema, Reports rash and Denies wounds Neurologic Neurologic: Denies behavioral changes, Denies confusion, Denies dizziness, Denies frequent falls, Denies loss of vision, Denies numbness, Denies tingling and Denies weakness Psychiatric Psychiatric: Denies anxiety, Denies behavioral changes, Denies confusion, Denies depression, Denies homicidal ideation and Denies suicidal ideation Endocrine Endocrine: Denies fatigue, Denies flushing and Denies palpitations Hematologic/Lymphatic Hematologic/Lymphatic: Denies easy bruising Allergic/Immunologic Allergic/Immunologic: Denies urticaria, Denies throat swelling and Denies wheezing Patient History <Tommy Motley PA-C - Last Filed: 10/04/21 19:39> Medical History (Updated 10/04/21 @ 19:37 by Tommy Motley PA-C) Chicken pox (~1969) Degenerative joint disease (DJD) of lumbar spine Healthy adult Hyperlipidemia Plantar warts (~1971) Shoulder pain (~2010) Varicosities of leg Surgical History Anesthesia History of hip replacement (02/10/05) History of hip replacement (07/12/07) Status post delivery (~1990) Status post delivery (~1993) Status post phlebectomy (~2000) Status post sclerotherapy of varicose veins (~1993) Status post tonsillectomy and adenoidectomy (~1967) Status post wrist surgery (~2001) Family History Father No problems noted. Mother No problems noted. Brother Hypertension Brother Hypertension Brother Hypertension Grandmother Cancer Social History marital status: lives independently: Yes caregiver/support person: No occupational status: employed Smoking Status: Former smoker quit status: quit date established alcohol intake: current (3-4 beers a day) substance use type: marijuana (smokes and/or edibles) Smoking Status: Former smoker Exam <Tommy Motley PA-C - Last Filed: 10/04/21 19:39> Initial Vital Signs Initial Vital Signs: Vital Signs Temperature 98.2 F 10/04/21 17:33 Pulse Rate 77 10/04/21 17:33 Respiratory Rate 18 10/04/21 17:33 Blood Pressure 134/80 10/04/21 17:33 Pulse Oximetry 97 10/04/21 17:33 Const General: cooperative, healthy appearing and comfortable Nutritional Appearance: average body habitus Skin Rashes: rashes noted (Fascicular rash observed from the left side of the groin around to left hip) pustules left groin <Kellen Rivera MD - Last Filed: 10/05/21 03:54> Initial Vital Signs Initial Vital Signs: Vital Signs Temperature 98.2 F 10/04/21 17:33 Pulse Rate 77 10/04/21 17:33 Respiratory Rate 18 10/04/21 17:33 Blood Pressure 134/80 10/04/21 17:33 Pulse Oximetry 97 10/04/21 17:33 Course <Tommy Motley PA-C - Last Filed: 10/04/21 19:39> Vital Signs Vital signs: Vital Signs - 8 hr 10/04/21 17:33 Temperature 98.2 F Pulse Rate 77 Respiratory Rate 18 Blood Pressure 134/80 Pulse Oximetry 97 <Kellen Rivera MD - Last Filed: 10/05/21 03:54> Vital Signs Vital signs: Vital Signs - 8 hr 10/04/21 17:33 Temperature 98.2 F Pulse Rate 77 Respiratory Rate 18 Blood Pressure 134/80 Pulse Oximetry 97 MDM - Skin/Abscess/Foreign Bdy <Tommy Motley PA-C - Last Filed: 10/04/21 19:39> Differential Diagnosis Differential diagnosis: Likely herpes zoster MDM Narrative Medical decision making narrative: Patient was seen today for a rash that was reported to be painful and today is itching. Based on the visual inspection it is consistent with shingles of which patient will be started on antiviral medications. She will be discharged home she can follow up with her PCP for further evaluation and treatment. Discharge Plan Departure Patient Disposition: Home Clinical Impression: Shingles Qualifiers: Herpes zoster complications: without complications Qualified Code(s): B02.9 - Zoster without complications Instructions: DI for Shingles Activity Restrictions/Additional Instructions: You were seen today for your rash in your left groin which I agree is likely shingles. A prescription for antiviral medications was sent to your pharmacy that you requested you can pick it up at your leisure. I would recommend he start the medication immediately. If your symptoms worsen or you are not having any improvement we can follow-up with your family physician or you can return to the ED for re-evaluation. The lesions are considered contact contagious as long as there are pustular formations within the lesions. Once you have scabbed over all of the lesions you are no longer considered contagious at that point you can use topical lidocaine to help treat pain if you continue to have ongoing pain. Thank you for the opportunity to care for you today. Prescriptions: New acyclovir 800 mg tablet 800 mg PO 5XD 7 Days Qty: 35 0RF Rx Instructions: space evenly during waking hours No Action meloxicam [Mobic] 15 mg tablet 15 mg PO AMCC Qty: 30 1RF albuterol sulfate [Ventolin HFA] 90 mcg/actuation HFA aerosol inhaler 1 puff INHALATION Q4-6H PRN (Reason: shortness of breath or wheezing) Qty: 18 0RF amoxicillin 500 mg tablet 500 mg PO BID Qty: 10 0RF dextromethorphan-guaifenesin [Mucinex DM] 60-1,200 mg tablet extended release 12 hr 1 tab PO Q12H Qty: 30 0RF Referrals: Katarzyna Dunne ARNP [Primary Care Provider] - <Kellen Rivera MD - Last Filed: 10/05/21 03:54> Cosign ED Attending Cosignature Attestation: I was immediately available in the department for consultation throughout this patient's visit. I agree with documentation as above. Kellen Rivera MD
== END 2021-10-04 19:53 | disposition home or self-care (01) ==
PROVIDERS: Emergency Provider Physician Assistant; Family Provider Internal Medicine; PCP Internal Medicine
DX: B02.9 Zoster without complications (principal)
CPT/HCPCS: 99281

== ENCOUNTER → 2021-10-21 10:09 | Outpatient (CLI) | payer OTHER, SELFPAY ==
[2021-10-21 12:33] LABS: COVID19 -Nasal RAPID Negative (Negative)
== END ==
PROVIDERS: Family Provider Internal Medicine; PCP Internal Medicine; Visit Provider Family Medicine Sleep Medicine
DX: Z20.822 Contact with and (suspected) exposure to COVID-19 (principal)
CPT/HCPCS: 87635; C9803

== ENCOUNTER 2021-10-23 13:41 | Day surgery (SDC) | payer OTHER, SELFPAY ==
--- NOTE | 2021-10-23 | PATH_ITS ---
[facility] Accession Number: [id number] . 01 Material submitted: . PART A: colon - ASCENDING COLON PART B: colon - ASCENDING COLON PART C: sigmoid colon - SIGMOID POLYP 2MM X2 . 01 Clinical history: . A: SUSPECTED DIVETICULA . 01 Diagnosis: A. Ascending Colon, Biopsy: Sessile serrated adenoma. . B. Ascending Colon, Biopsy: Tubular adenoma. . C. Sigmoid Colon, Polyp 2 mm x2, Biopsies: Hyperplastic polyps. MRV 10/28/2021 1416 Local . 01 Electronically signed: . Arabella Damon MD, Pathologist NPI- [id number] . 01 Gross description: . Part A: ASCENDING COLON: Received in formalin is 1 fragment(s) of sarabia, soft tissue measuring 0.3 x 0.2 x 0.2 cm submitted entirely in 1 cassette(s) Part B: ASCENDING COLON: Received in formalin is 1 fragment(s) of sarabia, soft tissue measuring 0.5 x 0.3 x 0.2 cm submitted entirely in 1 cassette(s) Part C: SIGMOID POLYP 2MM X2: Received in formalin are 2 fragment(s) of sarabia, soft tissue measuring 0.3 x 0.3 x 0.2 cm to 0.3 x 0.2 x 0.2 cm submitted entirely in 1 cassette(s) /CPE 10/24/2021 0619 Local . 01 Pathologist provided ICD-10: D12.2 . 01 CPT . 271312, 155089, 187800 Specimen Comment: A courtesy copy of this report has been sent to [phone] Performed at: 01 [facility] [address] [place] [address], [place], [place] [id number] MD Gerardo Shankar MD Phone: [phone]
--- NOTE | 2021-10-23 12:30 | PM.PREOP ---
Pre-operative Note COVID-19 COVID-19 status: Negative Result date/Date tested (Pos, Neg/Pending): 10/21/21 Interval Note History & Physical reviewed/Exam performed by Physician: Yes Changes to H&P: No ASA Class (for procedural sedation): II
--- NOTE | 2021-10-23 12:30 | PM.OP.COLON ---
Operative Date/Time/Diagnoses Date of procedure: 10/23/21 Procedure Notes SCOAP/Timeout: 2:37 p.m. Procedure in detail: ENDOSCOPIST: Stefanie Kaminski MD Sedation RN: Vitaly Gonzalez RN Sedation start time: 2:30 p.m. Sedation end time: 3:19 p.m. PROCEDURE: Colonoscopy with cold biopsy INDICATIONS: 1. Screening for colon cancer MEDICATION: Levsin 0.125 mg sublingual, incremental doses of Versed and fentanyl until appropriate level sedation achieved. ASA CLASS: 2 CECAL WITHDRAWAL TIME: 28 minutes COMPLICATIONS: None. EXTENT OF PROCEDURE: Cecum. QUALITY OF PREP: Good with portions of liquid stool. PROCEDURE: Prior to insertion of the colonoscope, a digital rectal examination was accomplished with circumferential palpation of the distal rectal mucosa without significant findings being noted. The high-definition colonoscope was passed into the rectum in the usual fashion and advanced over to the cecum without difficulty. The ileocecal valve, appendiceal stoma, and medial wall all could be inspected and no abnormalities were seen. ASCENDING COLON: As the colonoscope was withdrawn, care was taken to expose and inspect the haustral folds and an 8 mm polypoid lesion was seen, unclear if it was a polyp or everted diverticuli. It did have a central umbilication consistent with the diverticula. Methylene blue was injected and there was complete uptake of dye throughout the tissue, consistent with a diverticula Lesion was very soft when sprayed with with water and when poked with the biopsy forceps, it had no solid integrity. Lesion thought to be consistent with an inverted diverticula, a small targeted biopsy was taken to confirm diagnosis and hemoclip placed with excellent hemostasis. In the proximal ascending colon, a 2 mm polyp was seen and removed with cold biopsy forceps. HEPATIC FLEXURE: Normal, no polyps, diverticula or other abnormalities. TRANSVERSE COLON: Normal, no polyps, diverticula or other abnormalities. DESCENDING COLON: Normal, no polyps, diverticula or other abnormalities. SIGMOID COLON: Scattered diverticuli, several everted and 2 small polyps, each 2 mm, removed with cold biopsy forceps. RECTUM: Normal. J maneuver was produced. There was no significant perianal disease. The J maneuver was broken. The remainder of the rectum was inspected and there was no external hemorrhoid disease. The scope was withdrawn. IMPRESSION: 1. Ascending polyp x1, 2 mm, removed with cold biopsy forceps 2. Sigmoid polyp x2, 2 mm, removed with cold biopsy forceps 3. Diverticulosis, pancolonic PLAN: 1. Follow-up in clinic status post pathology results. The possibility of a missed lesion including a malignancy has been discussed with the patient previously. Potential alarm symptoms have been discussed and should be reported immediately.
[2021-10-23] MEDS: LACTATED RINGERS 1,000 ML 200 ML IV (14:01)
[2021-10-23 14:02] VITALS: BP 137/85; PULSE 78; RESP 16; TEMP 37.1; O2SAT 96; BMI 33.3
[2021-10-23] MEDS: HYOSCYAMINE 0.125 MG TABLET PO (14:02)
[2021-10-23] MEDS: MIDAZOLAM 5 MG/5 ML VIAL IV (14:38)
[2021-10-23] MEDS: fentaNYL 250 MCG/5 ML INJ 125 MCG IV (14:38)
[2021-10-23] MEDS: METHYLENE BLUE 50 MG/10 ML VIAL INJ (14:58)
[2021-10-23 15:24] VITALS: BP 126/75; PULSE 71; RESP 14; TEMP 35.9; O2SAT 99
[2021-10-23 15:30] VITALS: BP 131/80; PULSE 72; RESP 18; O2SAT 98
[2021-10-23 15:35] VITALS: BP 118/70; PULSE 69; RESP 18; O2SAT 97
[2021-10-23 15:40] VITALS: BP 110/68; PULSE 69; RESP 18; TEMP 36.1; O2SAT 98
== END 2021-10-23 15:57 | disposition home or self-care (01) ==
PROVIDERS: Family Provider Internal Medicine; PCP Internal Medicine; Referring Provider Student in an Organized Health Care Education/Training Program; Visit Provider Student in an Organized Health Care Education/Training Program
PROC: 0DJD8ZZ Inspection of Lower Intestinal Tract, Via Natural or Artificial Opening Endoscopic (ICD-10-PCS; CPT 45378; principal; 2021-10-23 14:30)
DX: Z12.11 Encounter for screening for malignant neoplasm of colon (principal); K57.30 Diverticulosis of large intestine without perforation or abscess without bleeding; D12.2 Benign neoplasm of ascending colon
CPT/HCPCS: 45380; J2250; J3010; Q9968

== ENCOUNTER → 2021-11-18 15:55 | Outpatient (CLI) | payer OTHER, SELFPAY ==
--- NOTE | 2021-11-18 | DI.RAD.S_ITS ---
PROCEDURE: XR HUMERUS LT 2V INDICATIONS: LEFT ARM PAIN, HX OF HUMERUS FRACTURE TECHNIQUE: 2 views of the humerus were acquired. COMPARISON: [facility], CR, XR HUMERUS LEFT, 12/02/2019, 14:03. [facility], CR, XR HUMERUS LT 2V, 06/08/2021, 9:18. FINDINGS: Bones: Fracture alignment is stable and fracture lucency is slightly less distinct indicating healing of the left humeral midshaft fracture. No definitive bridging callus is seen. Stable positioning of fixation plates as well as multiple fixation screws. No periprosthetic fractures or evidence of loosening/infection. Background osteoarthritic changes redemonstrated. Soft tissues: No suspicious soft tissue calcifications. IMPRESSION: 1. Stable postsurgical sequelae and bony alignment. Dictated by: Pelon Morris [facility] Interpreted: Leeanna Ghotra MD on 11/18/2021 at 16:32 Transcribed by: TREVOR on 11/18/2021 at 16:34 Approved by: Leeanna Ghotra M.D. on 11/24/2021 at 9:06
== END ==
PROVIDERS: Family Provider Internal Medicine; PCP Internal Medicine; Referring Provider Internal Medicine; Visit Provider Internal Medicine
DX: S42.392D Other fracture of shaft of left humerus, subsequent encounter for fracture with routine healing (principal); M79.602 Pain in left arm; X58.XXXD Exposure to other specified factors, subsequent encounter
CPT/HCPCS: 73060

== ENCOUNTER → 2022-02-26 14:34 | Outpatient (CLI) | payer OTHER, SELFPAY ==
[2022-02-26 15:58] LABS: COVID19 -Nasal RAPID Negative (Negative)
== END ==
PROVIDERS: Family Provider Internal Medicine; PCP Internal Medicine; Visit Provider Surgery
DX: Z20.822 Contact with and (suspected) exposure to COVID-19 (principal); Z01.812 Encounter for preprocedural laboratory examination
CPT/HCPCS: 87635; C9803

== ENCOUNTER 2022-03-01 08:58 | Day surgery (SDC) | payer OTHER, SELFPAY ==
--- NOTE | 2022-03-01 | PATH_ITS ---
[facility] Accession Number: [id number] . 01 Material submitted: . PART A: colon - ASCENDING COLON POLYP PART B: colon - DESCENDING COLON POLYP PART C: colon - SIGMOID POLYP . 01 Diagnosis: A. Ascending Colon, Polyp, Biopsy: Sessile serrated adenoma. . B. Descending Colon, Polyp, Biopsy: Hyperplastic polyp. . C. Sigmoid Colon, Polyp, Biopsy: Tubular adenoma. Hyperplastic polyp. MRV 03/03/2022 1446 Local . 01 Electronically signed: . Arabella Damon MD, Pathologist NPI- [id number] . 01 Gross description: . Part A: ASCENDING COLON POLYP: Received in formalin are 2 fragment(s) of sarabia, soft tissue measuring 0.8 x 0.5 x 0.2 cm to 0.7 x 0.2 x 0.2 cm submitted entirely in 1 cassette(s) Part B: DESCENDING COLON POLYP: Received in formalin is 1 fragment(s) of sarabia, soft tissue measuring 0.3 x 0.2 x 0.1 cm submitted entirely in 1 cassette(s) Part C: SIGMOID POLYP: Received in formalin are multiple fragment(s) of sarabia, soft tissue measuring 1.2 x 0.6 x 0.1 cm in aggregate submitted entirely in 1 cassette(s) /CPE 03/02/2022 0521 Local . 01 Pathologist provided ICD-10: D12.2, D12.5 . 01 CPT . 815379, 798326, 664162 Specimen Comment: A courtesy copy of this report has been sent to [phone] Performed at: 01 [facility] [address] [place] [address] [address], [place], [place] [id number] MD Gerardo Shankar MD Phone: [phone]
--- NOTE | 2022-03-01 09:08 | P.HP_ITS ---
History of Present Illness History of Present Illness Date Patient Seen: 03/01/22 Chief complaint: SDC Narrative: 56-year-old female here for colon polyp removal. Patient had prior colonoscopy in October 2021 with on resected ascending colon polyp by Dr. Kamniski Patient History Medical History (Updated 10/23/21 @ 14:00 by Yeimi Otero, RN) Chicken pox (~1969) Degenerative joint disease (DJD) of lumbar spine Fx surg neck humerus-open (~2020) Healthy adult Hyperlipidemia Plantar warts (~1971) Shoulder pain (~2010) Varicosities of leg Surgical History Anesthesia History of hip replacement (02/10/05) History of hip replacement (07/12/07) Status post delivery (~1990) Status post delivery (~1993) Status post phlebectomy (~2000) Status post sclerotherapy of varicose veins (~1993) Status post tonsillectomy and adenoidectomy (~1967) Status post wrist surgery (~2001) Family & Social History Family History Father No problems noted. Mother No problems noted. Brother Hypertension Brother Hypertension Brother Hypertension Grandmother Cancer Social History: household members spouse lives independently Yes caregiver/support person No Tobacco & Substance use: Tobacco type cigarettes Smoking Status Former smoker alcohol intake current alcohol intake frequency a few times a week Substance Use Type marijuana Meds Home Medications and Allergies Allergies Allergy/AdvReac Type Severity Reaction Status Date / Time erythromycin base Allergy Mild Verified 03/01/22 09:11 morphine Allergy Verified 03/01/22 09:11 Exam Narrative Exam Narrative: General: Patient is obese, not in apparent distress Cardiovascular: Regular rate and rhythm, no murmurs, rubs, or gallops; no eviden ce of edema; no palpable abdominal aortic aneurysm Gastrointestinal: Normoactive bowel sounds, soft, nontender, nondistended, no rebound tenderness, no hepatosplenomegaly, no evidence of hernia Assessment & Plan Assessment & Plan narrative: 48-year-old female with a history of unresected ascending colon polyp here for polypectomy Regarding the procedure(s), the risks and potential complications, benefits, and alternatives (including not doing the procedure) were discussed with the patient. The risks include but are not limited to bleeding, splenic injury, infection, perforation which may require surgical intervention, missed lesions, and adverse reactions to sedative medicines. After a question and answer period, the patient agreed to proceed with the procedure(s) and gives informed consent. Time Spent With Patient Critical Care time: I spent a total of [] minutes of critical care time on this patient's care today; this time is exclusive of procedural time.
[2022-03-01 09:13] VITALS: BP 165/97; PULSE 74; RESP 16; TEMP 36.3; O2SAT 99; BMI 33.7
[2022-03-01] MEDS: SODIUM CHLORIDE 0.9% 1,000 ML 70 ML IV (09:32)
--- NOTE | 2022-03-01 09:58 | PM.OP.COLON ---
Operative Date/Time/Diagnoses Date of procedure: 03/01/22 Procedure Notes Procedure in detail: Surgeon: Antonio Alegria MD Procedure: Colonoscopy with polypectomy Preoperative diagnosis: Ascending adenoma not resected on last colonoscopy October 2021 Postoperative diagnosis: Colon polyps x3 status post polypectomy, sigmoid diverticulosis, grade 1 internal hemorrhoids Medications: Monitored anesthesia care Preanesthesia Assessment An H and P was performed/updated and the Px?s ASA class is 2. The procedure was discussed in detail with the patient. The potential risks and complications including infection, bleeding, missed lesions, perforation, need for surgery in case of perforation, prolonged hospital stay, and were explained. A brief question and answer period was allotted and once all questions were answered, informed consent was obtained. The patient was brought back to the procedure room and placed on standard monitoring. The patient?s vital signs were monitored continuously throughout the entire procedure. Prior to starting, a timeout was performed to confirm the patient?s identity, allergies, medications, and procedure. Procedure in detail The patient was placed in left lateral decubitus position and once adequate sedation was obtained a BETTY was performed. The digital rectal examination did not reveal any palpable lesions. The tip of the colonoscope was placed in the anal canal and advanced without difficulty all the way to the cecum which was identified by the appendiceal orifice and the ileocecal valve. Careful examination of all avery of the colon was performed with irrigation of any residual stool. In the ascending colon, there was note of an 8 mm sessile polyp. This was removed by means of cold snare. Resection and retrieval was complete with minimal bleeding In the descending colon, there was note of a 2 mm sessile polyp. This was removed by means of cold Jumbo forceps. Resection retrieval was complete with minimal bleeding In the sigmoid colon, there was note of a 4 mm sessile polyp. This was removed by means of cold snare. Resection retrieval was complete with minimal bleeding. In the sigmoid colon, there was note of several medium-sized diverticula Retroflexion was performed in the rectum which revealed grade 1 internal hemorrhoids The patient tolerated the procedure well and will be brought back to the recovery area to be discharged once criteria are met. The prep was judged to be good and adequate to identify polyps less than 5 mm. The withdrawal time was 10 minutes. Complications There were no complications and estimated blood loss was minimal. Recommendations: Resume previous diet Continue outPx medications Follow up pathology results Repeat colonoscopy in February 2025 given adenomas removed in October 2021 and polyps removed during this colonoscopy An emergency contact number was given to the patient for any complications related to the procedure
[2022-03-01 10:17] VITALS: BP 156/86; PULSE 73; RESP 13; TEMP 36.3; O2SAT 96
[2022-03-01 10:23] VITALS: BP 162/96; PULSE 68; RESP 17; O2SAT 97
[2022-03-01 10:28] VITALS: BP 159/97; PULSE 66; RESP 18; TEMP 36.4; O2SAT 99
[2022-03-01 10:47] VITALS: BP 154/91; PULSE 62; RESP 16; O2SAT 100
--- NOTE | 2022-03-01 11:04 | SUR.PHASEII ---
Patient ambulated to wheelchair with steady gait. Tolerated fluids. Provided discharge instruction, written/verbal. Pt stated understanding. Discharged patient by wheelchair to private vehicle in stable condition. See flowsheet for assessment details.
== END 2022-03-01 10:59 | disposition home or self-care (01) ==
PROVIDERS: Family Provider Internal Medicine; PCP Internal Medicine; Referring Provider Internal Medicine Gastroenterology; Visit Provider Internal Medicine Gastroenterology
PROC: 0DJD8ZZ Inspection of Lower Intestinal Tract, Via Natural or Artificial Opening Endoscopic (ICD-10-PCS; CPT 45378; principal; 2022-03-01 10:00)
DX: D12.2 Benign neoplasm of ascending colon (principal); Z86.010 Personal history of colon polyps; K64.0 First degree hemorrhoids; K57.30 Diverticulosis of large intestine without perforation or abscess without bleeding
CPT/HCPCS: 45385; J2405; J2704

== ENCOUNTER → 2022-06-18 17:41 | Outpatient (ROUT) | payer OTHER, SELFPAY ==
[2022-06-18 18:58] LABS: Influenza A - CEPHEID Flu A NEGATIVE (NEGATIVE); Influenza B - CEPHEID Flu B NEGATIVE (NEGATIVE); Respiratory Syncytial Virus Negative (Negative)
[2022-06-18 19:11] LABS: COVID-19 CEPHEID 4-PLEX PCR POSITIVE (Negative)
== END ==
PROVIDERS: Family Provider Internal Medicine; PCP Internal Medicine; Visit Provider Registered Nurse
DX: U07.1 COVID-19 (principal); Z20.822 Contact with and (suspected) exposure to COVID-19
CPT/HCPCS: 0241U

== ENCOUNTER → 2022-08-09 16:40 | Outpatient (ROUT) | payer OTHER, SELFPAY ==
[2022-08-09 17:21] LABS: Influenza A - CEPHEID Flu A NEGATIVE (NEGATIVE); Influenza B - CEPHEID Flu B NEGATIVE (NEGATIVE); Respiratory Syncytial Virus Negative (Negative)
[2022-08-09 17:25] LABS: COVID-19 CEPHEID 4-PLEX PCR Negative (Negative)
== END ==
PROVIDERS: Family Provider Internal Medicine; PCP Internal Medicine; Visit Provider Internal Medicine
DX: Z20.822 Contact with and (suspected) exposure to COVID-19 (principal)
CPT/HCPCS: 0241U

== ENCOUNTER → 2022-09-01 15:36 | Outpatient (CLI) | payer OTHER, SELFPAY ==
--- NOTE | 2022-09-02 12:02 | PM.PFT.1 ---
Pulmonary Function Test Referral & Results Date Patient Seen: 09/01/22 Results: The spirometry demonstrates an FVC of 2.79 L which is 80% of predicted. The FEV1 was measured at 1.74 L which is 64% of predicted. The FEV1/FVC ratio was 62 which is 79% of predicted. Following the administration of bronchodilator there was a 9% improvement in FEV1 and a 29% improvement in FEF 25-75%. Lung volumes show an SVC of 3.09 L which is 97% of predicted. The diffusing capacity was measured at 24.86 which is 97% of predicted. The maximum voluntary ventilation was slightly reduced Interpretation: This study demonstrates [id number] obstructive lung disease based on reduction FEV1 although FEV1/FVC ratio is relatively preserved. There is some evidence of benefit following bronchodilator particularly small airway flow as above based on improvement in FEF 25-75% Lung volumes and diffusing capacity are normal This is consistent with a diagnosis of mild asthma Clinical correlation suggested
== END ==
LOC: RAD 15:36 → RESP 15:36
PROVIDERS: Family Provider Internal Medicine; PCP Internal Medicine; Referring Provider Internal Medicine; Visit Provider Internal Medicine
DX: R06.02 Shortness of breath (principal); Z87.891 Personal history of nicotine dependence; J98.8 Other specified respiratory disorders
CPT/HCPCS: 94060; 94726; 94729

== ENCOUNTER → 2022-09-01 | Outpatient (CLI) | payer OTHER, SELFPAY | LOC: RESP 10-01 07:50 | PROVIDERS: Family Provider Internal Medicine; PCP Internal Medicine; Referring Provider Internal Medicine; Visit Provider Internal Medicine | DX: R06.02 Shortness of breath (principal); Z01.812 Encounter for preprocedural laboratory examination ==

== ENCOUNTER → 2023-02-22 15:39 | Outpatient (CLI) | payer OTHER, SELFPAY ==
--- NOTE | 2023-02-22 15:42 | DI.RAD.S_ITS ---
PROCEDURE: XR KNEE LT 3V INDICATIONS: Acute Pain TECHNIQUE: 3 views of the knee were acquired. COMPARISON: None. FINDINGS: Bones: No fractures or dislocations. No suspicious bony lesions. Moderate left knee tricompartmental osteoarthritis with osseous hypertrophy and mild joint space narrowing. Soft tissues: No joint effusion. No suspicious soft tissue calcifications. IMPRESSION: Moderate left knee tricompartmental osteoarthritis. Dictated by: Rosa Johnson MD, PhD on 02/22/2023 at 16:17 Approved by: Rosa Johnson MD, PhD on 02/22/2023 at 16:17
== END ==
PROVIDERS: Family Provider Internal Medicine; PCP Internal Medicine; Referring Provider Internal Medicine; Visit Provider Internal Medicine
DX: M25.562 Pain in left knee (principal); M71.22 Synovial cyst of popliteal space [Baker], left knee; M17.12 Unilateral primary osteoarthritis, left knee
CPT/HCPCS: 73562

== ENCOUNTER → 2023-06-14 17:01 | Outpatient (CLI) | payer OTHER, SELFPAY ==
--- NOTE | 2023-06-14 | DI.RAD.S_ITS ---
PROCEDURE: XR SACRUM COCCYX MIN 2V INDICATIONS: SACRAL PAIN TECHNIQUE: 3 views of the sacrum and coccyx acquired. COMPARISON: None. FINDINGS: Bones: No fractures or dislocations. No suspicious bony lesions. Mild degenerative changes of the sacroiliac joints. Soft tissues: Visualized bowel gas pattern is normal. No suspicious soft tissue densities. IMPRESSION: Degenerative changes of the sacroiliac joints, without displaced fracture. Dictated by: Steve Williamson M.D. on 06/15/2023 at 11:39 Approved by: Steve Williamson M.D. on 06/15/2023 at 11:40
--- NOTE | 2023-06-14 | DI.RAD.S_ITS ---
PROCEDURE: XR PELVIS 1-2V INDICATIONS: COCCYX PAIN TECHNIQUE: 1 view(s) of the pelvis acquired. COMPARISON: None. FINDINGS: Bones: No fractures or dislocations. No suspicious bony lesions. Bilateral hip arthroplasties, which appear well aligned. Soft tissues: Visualized bowel gas pattern is normal. No suspicious soft tissue calcifications. IMPRESSION: No acute bony abnormality. Dictated by: Steve Williamson M.D. on 06/15/2023 at 11:40 Approved by: Steve Williamson M.D. on 06/15/2023 at 11:41
== END ==
PROVIDERS: Family Provider Internal Medicine; PCP Internal Medicine; Referring Provider Internal Medicine; Visit Provider Internal Medicine
DX: M47.818 Spondylosis without myelopathy or radiculopathy, sacral and sacrococcygeal region (principal); M53.3 Sacrococcygeal disorders, not elsewhere classified
CPT/HCPCS: 72170; 72220

== ENCOUNTER → 2023-07-13 16:15 | Outpatient (CLI) | payer OTHER, SELFPAY ==
--- NOTE | 2023-07-13 16:20 | DI.RAD.S_ITS ---
PROCEDURE: XR HUMERUS LT 2V INDICATIONS: LT ARM PAIN TECHNIQUE: 2 views of the humerus were acquired. COMPARISON: [facility], CR, XR HUMERUS LT 2V, 11/18/2021, 15:46. FINDINGS: Bones: No fractures or dislocations. Surgical plate and screw fixation of mid humeral shaft fracture is intact with no perihardware lucency to suggest hardware loosening. Interval callus formation. Stable alignment. No new fracture or dislocation. No suspicious bony lesions. Soft tissues: No suspicious soft tissue calcifications. IMPRESSION: Surgical plate and screw fixation of mid humeral shaft fracture is intact without complication. Interval osseous healing. Stable alignment. Dictated by: Patricia Mario M.D. on 07/13/2023 at 19:13 Approved by: Patricia Mario M.D. on 07/13/2023 at 19:13
== END ==
PROVIDERS: Family Provider Internal Medicine; PCP Internal Medicine; Referring Provider Internal Medicine; Visit Provider Internal Medicine
DX: S42.302D Unspecified fracture of shaft of humerus, left arm, subsequent encounter for fracture with routine healing (principal); M79.602 Pain in left arm; R20.2 Paresthesia of skin; X58.XXXD Exposure to other specified factors, subsequent encounter
CPT/HCPCS: 73060

== ENCOUNTER 2023-11-23 21:14 | Emergency (ER) | payer OTHER, SELFPAY ==
[2023-11-23 21:43] VITALS: BP 105/59; PULSE 78; RESP 20; TEMP 36.7; O2SAT 97; BMI 32.5
== END 2023-11-23 22:00 | disposition left against medical advice (07) ==
PROVIDERS: Emergency Provider Emergency Medicine; Family Provider Internal Medicine; PCP Internal Medicine
DX: R50.9 Fever, unspecified (principal)
CPT/HCPCS: 99281

== ENCOUNTER 2023-11-26 12:46 | Inpatient (IN) | payer OTHER, SELFPAY ==
[2023-11-26] VITALS (32 sets, daily range): BP systolic 88–145; BP diastolic 50–76; PULSE 86–107; RESP 16–28; TEMP 36.5–39.2; O2SAT 93–100; BMI 32.5
--- NOTE | 2023-11-26 13:05 | DI.RAD.S_ITS ---
PROCEDURE: XR CHEST 1V INDICATIONS: suspected sepsis TECHNIQUE: One view of the chest was acquired. COMPARISON: [facility], CR, XR CHEST 2V, 10/22/2019, 16:22. FINDINGS: Surgical changes and devices: None. Lungs and pleura: Lungs are clear. No pleural effusions or pneumothorax. Mediastinum: Mediastinal contours appear normal. Heart size is normal. Bones and chest wall: No suspicious bony lesions. Overlying soft tissues appear unremarkable. IMPRESSION: No acute pulmonary process. Dictated by: Rosemarie Bunhc M.D. on 11/26/2023 at 14:00 Approved by: Rosemarie Bunch M.D. on 11/26/2023 at 14:00
[2023-11-26 13:47] LABS: INR 1.1 (0.9-1.3); Prothrombin Time 12.5 SECONDS (9.4-12.5)
[2023-11-26 13:49] LABS: PTT Partial Thromboplastin Tim 35 SECONDS (25.1-36.5)
[2023-11-26 13:51] LABS: Alanine Aminotransferase 19 IU/L (<35); Albumin 4.1 g/dL (3.5-5.0); Albumin Globulin Ratio 1.1 (1.0-2.8); Alkaline Phosphatase 122 U/L (38-126); Aspartate Aminotransferase 22 IU/L (14-36); BUN Creatinine Ratio 27.4 (6-22); Bilirubin Total 0.8 mg/dL (0.2-1.3); Blood Urea Nitrogen 17 mg/dL (7-17); Calcium 8.7 mg/dL (8.4-10.2); Carbon Dioxide 23 mmol/L (22-32); Chloride 98 mmol/L (98-107); Estimated Glomerular Filt Rate > 60 mL/min (>60); Globulin 3.9 g/dL (1.7-4.1); Glucose 111 mg/dL (80-110); HEMOLYSIS 21 (0-50); Lactate (Lactic Acid) 1.6 mmol/L (0.7-2.1); Lipase 56 U/L (23-300); Potassium 3.7 mmol/L (3.4-5.1); Sodium 131 mmol/L (137-145)
[2023-11-26 13:52] LABS: Add Manual Diff / Slide Review NO; Basophils Absolute Auto 0 /uL (0-100); Basophils Percent Auto 0.1 % (0-2); Eosinophils Absolute Auto 100 /uL (0-450); Eosinophils Percent Auto 0.3 % (2-4); Hematocrit 41.4 % (36-46); Hemoglobin 14.2 g/dL (12.0-16.0); Lymphocytes Absolute Auto 600 /uL (1100-4500); Lymphocytes Percent Auto 2.8 % (25-40); Mean Corpuscular HGB Conc 34.3 % (30-36); Mean Corpuscular Hemoglobin 29.9 PG (26-34); Mean Corpuscular Volume 87.2 fL (80-100); Monocytes Absolute Auto 1000 /uL (0-900); Monocytes Percent Auto 4.4 % (3-14); Neutrophils Absolute Auto 21600 /uL (1500-7000); Neutrophils Percent Auto 92.4 % (50-75); Platelet Count 223 X10^3/uL (150-400); Red Blood Cell Count 4.75 X10^6/uL (4.0-5.2); Red Cell Distribution Width 13.6 % (11.6-14.8); White Blood Cell Count 23.4 X10^3/uL (4.5-11.0)
[2023-11-26] MEDS: SODIUM CHLORIDE 0.9% 1,000 ML 1000 ML IV (13:55)
--- NOTE | 2023-11-26 14:03 | ED.GENADULT ---
HPI - General Adult General Chief complaint: Fever Stated complaint: abd cramps, fever t-4 Time Seen by Provider: 11/26/23 14:00 Source: patient, RN notes reviewed and old records reviewed Mode of arrival: Wheelchair Limitations: no limitations History of Present Illness HPI narrative: 58-year-old female with complaint of fevers up to 101 F, nausea, abdominal pain which she describes as cramping starting low in her abdomen moving upwards. States she has had frequent diarrhea with small amounts, very dark brown, no black, no bright red blood, she states sometimes up hourly. She denies dysuria urgency or frequency. No vaginal bleeding or discharge. Denies any back or flank pain. She notes she did have what he thinks is a spider bite on her right abdomen there is some erythema and a little bit of drainage but very localized less than a cm [place] with a Band-Aid over it. States that occurred about 4 days ago. Symptoms started in the last 3 days. Patient states no daily medications. Denies any prior abdominal surgeries. States she has had prior hip replacement, , sclerotherapy for varicose veins remotely. Patient states morphine makes her stop breathing, she does not tolerate erythromycin. Quit using tobacco 4 years ago, denies any regular alcohol use, states occasional cocaine use, last use was 5 days ago. Ingested by smoking. She denies any IV or injection drugs. Does use marijuana intermittently. Katarzyna Dunne is her primary care. Related Data Allergies Allergy/AdvReac Type Severity Reaction Status Date / Time erythromycin base Allergy Mild Verified 11/26/23 13:05 morphine Allergy Verified 11/26/23 13:05 Review of Systems Review of Systems ROS Unobtainable: All systems reviewed & are unremarkable except as noted in HPI and below Patient History Medical History Fx surg neck humerus-open (~2020) Varicosities of leg Shoulder pain (~2010) Degenerative joint disease (DJD) of lumbar spine Plantar warts (~1971) Chicken pox (~1969) Hyperlipidemia Healthy adult Surgical History Anesthesia Status post wrist surgery (~2001) Status post phlebectomy (~2000) Status post delivery (~1993) Status post sclerotherapy of varicose veins (~1993) History of hip replacement (07/12/07) History of hip replacement (02/10/05) Status post tonsillectomy and adenoidectomy (~1967) Status post delivery (~1990) Family History Father No problems noted. Mother No problems noted. Brother Hypertension Brother Hypertension Brother Hypertension Grandmother Cancer Social History marital status: household members: spouse lives independently: Yes caregiver/support person: No occupational status: employed Smoking Status: Former smoker quit status: quit date established alcohol intake: current substance use type: marijuana (smokes and/or edibles) Smoking Status: Former smoker alcohol intake frequency: 3 or more drinks per day Alcohol type: beer Substance Use Type: marijuana and crack/cocaine Exam Narrative Exam Narrative: GENERAL: Alert and oriented x three, female in mild distress. HEENT: Head normocephalic, atraumatic, EOMI, pupils reactive, face symmetric, moist mucous membranes NECK: Supple, full range of motion CARDIOVASCULAR: Slightly tachycardic but regular rate and rhythm without murmurs, rubs or gallops. No JVD. No edema bilateral lower extremities. RESPIRATORY: Breath sounds equal bilaterally, no wheezes rales or rhonchi. No tachypnea or accessory muscle use. ABDOMEN: Soft, generalized tenderness seems a little bit worse than left lower quadrant. Hyperactive bowel sounds all 4 quadrants. No guarding or rebound, rigidity, no mass. Patient has a cm circular area of erythema with very scant amount of purulent drainage, there is no abscess no fluctuant fluid collection or induration. No the right lateral abdomen with no erythema or surrounding skin changes. : No CVA tenderness EXTREMITIES: Normal range of motion, no clubbing or edema. Neurovascularly intact NEUROLOGICAL: Cranial nerves II through XII grossly intact. Moving all extremities SKIN: Warm, dry, no petechiae, no rashes or lesions. Initial Vital Signs Initial Vital Signs: Vital Signs Temperature 99.0 F 11/26/23 13:00 Pulse Rate 97 H 11/26/23 13:00 Respiratory Rate 16 11/26/23 13:00 Blood Pressure 125/67 11/26/23 13:00 Pulse Oximetry 100 11/26/23 13:00 Course Orders Ordered: ED Orders 11/26/23 13:05 XR chest 1V Stat RT Consult Eval and Treat NOW 11/26/23 13:29 Complete Blood Count AUTO DIFF Stat Comprehensive Metabolic Panel Stat Lactate (Lactic Acid) Stat Lipase Stat PTT Partial Thromboplastin Sid Stat Procalcitonin Stat Prothrombin Time INR Stat 11/26/23 13:43 Blood Culture Stat 11/26/23 14:14 CT abdomen pelvis w con Stat GI Panel (Film Array) Stat 11/26/23 14:22 Ictotest Urine Stat Urine Culture Stat Urine Microscopic Stat Acetaminophen (Acetaminophen 325 Mg Tablet) 650 mg PO Q6H PRN PRN Reason: Fever/Mild Pain (1-3) Last Admin: 11/26/23 14:30 Dose: 650 mg Documented By: KIRIT Acetaminophen (Acetaminophen 325 Mg Tablet) 975 mg PO Q6H PRN PRN Reason: Fever/Mild Pain (1-3) Ceftriaxone Sodium 2,000 mg/ (Sodium Chloride) 100 mls @ 200 mls/hr IV Q24H JOHN Ibuprofen (Ibuprofen 600 Mg Tablet) 600 mg PO Q6H PRN PRN Reason: Fever/Mild Pain (1-3) Naloxone HCl (Naloxone 0.4 Mg/Ml Vial) 0.2 mg IV Q2MIN PRN PRN Reason: Opiate Reversal Ondansetron HCl (Ondansetron 4 Mg/2 Ml Inj) 4 mg IV NOW PRN PRN Reason: Nausea And Vomiting Ondansetron HCl (Ondansetron 4 Mg Odt) 4 mg SL NOW PRN PRN Reason: Nausea And Vomiting Ondansetron HCl (Ondansetron 4 Mg/2 Ml Inj) 4 mg IV Q8HR PRN PRN Reason: Nausea And Vomiting Ondansetron HCl (Ondansetron 4 Mg Odt) 4 mg PO Q8HR PRN PRN Reason: Nausea And Vomiting Vancomycin HCl (Vancomycin Per Pharmacy) 1 request MISC NOW PRN PRN Reason: abdominal wall cellulitis Discontinued Medications Hydromorphone HCl (Hydromorphone 0.5 Mg Inj) 0.5 mg IV NOW ONE Stop: 11/26/23 15:25 Last Admin: 11/26/23 15:43 Dose: 0.5 mg Documented By: KIRIT Sodium Chloride (Normal Saline 0.9%) 1,000 mls @ 1,000 mls/hr IV BOLUS ONE Stop: 11/26/23 14:04 Last Infusion: 11/26/23 15:01 Dose: Infused Documented By: Admin: 11/26/23 13:55 Dose: 1,000 mls/hr Documented By: BS Sodium Chloride (Normal Saline 0.9%) 1,641 mls @ 547 mls/hr 30 ml/kg infuse over 3 hr (1641 ml) IV NOW ONE Stop: 11/26/23 17:15 Last Infusion: 11/26/23 16:05 Dose: 547 mls/hr Documented By: Infusion: 11/26/23 15:02 Dose: 0 mls/hr Documented By: Admin: 11/26/23 15:02 Dose: 547 mls/hr Documented By: BS Piperacillin Sod/Tazobactam (Sod 4.5 gm/ Sodium Chloride) 100 mls @ 200 mls/hr IV NOW ONE Stop: 11/26/23 14:23 Last Infusion: 11/26/23 15:44 Dose: Infused Documented By: Admin: 11/26/23 15:02 Dose: 200 mls/hr Documented By: KIRIT Vancomycin HCl (Vancomycin) 1,250 mg in 250 mls @ 250 mls/hr IV NOW ONE Stop: 11/26/23 17:28 Last Infusion: 11/26/23 18:08 Dose: Infused Documented By: Admin: 11/26/23 16:57 Dose: 250 mls/hr Documented By: KIRIT Ketorolac Tromethamine (Ketorolac 30 Mg/Ml Vial) 15 mg IV NOW ONE Stop: 11/26/23 14:15 Last Admin: 11/26/23 14:29 Dose: 15 mg Documented By: KIRIT Pantoprazole Sodium (Pantoprazole 40 Mg Vial) 40 mg IV NOW ONE Stop: 11/26/23 14:40 Last Admin: 11/26/23 15:02 Dose: 40 mg Documented By: KIRIT Vital Signs Vital signs: Vital Signs - 8 hr 11/26/23 13:00 11/26/23 13:01 11/26/23 13:30 Temperature 99.0 F 100 F H Pulse Rate 97 H 96 H Respiratory Rate 16 18 Blood Pressure 125/67 118/76 110/65 Pulse Oximetry 100 100 Oxygen Delivery Method Room Air 11/26/23 13:30 11/26/23 14:00 11/26/23 14:00 Temperature Pulse Rate 103 H 103 H Respiratory Rate 22 19 Blood Pressure 111/66 Pulse Oximetry 96 98 Oxygen Delivery Method 11/26/23 14:24 11/26/23 14:28 11/26/23 14:28 Temperature 100.0 F H Pulse Rate 100 H Respiratory Rate 26 H Blood Pressure 145/65 H Pulse Oximetry 99 Oxygen Delivery Method 11/26/23 14:29 11/26/23 14:30 11/26/23 14:30 Temperature 102.5 F H 102.5 F H Pulse Rate 100 H Respiratory Rate 23 Blood Pressure Pulse Oximetry 97 Oxygen Delivery Method 11/26/23 14:31 11/26/23 14:31 11/26/23 14:48 Temperature Pulse Rate 101 H 107 H Respiratory Rate 19 17 Blood Pressure 127/67 Pulse Oximetry 98 100 Oxygen Delivery Method 11/26/23 14:48 11/26/23 15:00 11/26/23 15:00 Temperature Pulse Rate 101 H Respiratory Rate 20 Blood Pressure 138/74 124/66 Pulse Oximetry 97 Oxygen Delivery Method 11/26/23 15:30 11/26/23 15:30 11/26/23 16:00 Temperature Pulse Rate 98 H Respiratory Rate 24 Blood Pressure 113/63 99/60 Pulse Oximetry 96 Oxygen Delivery Method 11/26/23 16:00 11/26/23 16:05 11/26/23 16:06 Temperature 101.8 F H 101.8 F H 101.8 F H Pulse Rate 91 H Respiratory Rate 19 Blood Pressure Pulse Oximetry 96 Oxygen Delivery Method 11/26/23 16:30 11/26/23 16:30 Temperature Pulse Rate 91 H Respiratory Rate 24 Blood Pressure 106/56 L Pulse Oximetry 96 Oxygen Delivery Method Medical Decision Making Lab Data 11/26/23 13:29 11/26/23 13:29 Labs: Lab Results 11/26/23 11/26/23 Range/Units 13:29 14:22 WBC 23.4 H (4.5-11.0) X10^3/uL RBC 4.75 (4.0-5.2) X10^6/uL Hgb 14.2 (12.0-16.0) g/dL Hct 41.4 (36-46) % MCV 87.2 (80-100) fL MCH 29.9 (26-34) PG MCHC 34.3 (30-36) % RDW 13.6 (11.6-14.8) % Plt Count 223 (150-400) X10^3/uL Neut % (Auto) 92.4 H (50-75) % Lymph % (Auto) 2.8 L (25-40) % Hand % (Auto) 4.4 (3-14) % Eos % (Auto) 0.3 L (2-4) % Baso % (Auto) 0.1 (0-2) % Neut # (Auto) 36278 H (4481-4402) /uL Lymph # (Auto) 600 L (6327-0095) /uL Hand # (Auto) 1000 H (0-900) /uL Eos # (Auto) 100 (0-450) /uL Baso # (Auto) 0 (0-100) /uL PT 12.5 (9.4-12.5) SECONDS INR 1.1 (0.9-1.3) APTT 35 (25.1-36.5) SECONDS Sodium 131 L (137-145) mmol/L Potassium 3.7 (3.4-5.1) mmol/L Chloride 98 (98-107) mmol/L Carbon Dioxide 23 (22-32) mmol/L BUN 17 (7-17) mg/dL Creatinine 0.62 (0.52-1.04) mg/dL Estimated GFR > 60 (>60) mL/min BUN/Creatinine Ratio 27.4 H (6-22) Glucose 111 H (80-110) mg/dL Lactate 1.6 (0.7-2.1) mmol/L Calcium 8.7 (8.4-10.2) mg/dL Total Bilirubin 0.8 (0.2-1.3) mg/dL AST 22 (14-36) IU/L ALT 19 (<35) IU/L Alkaline Phosphatase 122 (38-126) U/L Total Protein 8.0 (6.3-8.2) g/dL Albumin 4.1 (3.5-5.0) g/dL Globulin 3.9 (1.7-4.1) g/dL Albumin/Globulin Ratio 1.1 (1.0-2.8) Lipase 56 (23-300) U/L Procalcitonin 5.66 H (<0.5) ng/mL Ur Bilirubin Confirm Negative (Negative) Urine RBC 0-1/hpf (0-5/HPF) Urine WBC 0-1/hpf (0-5/HPF) Ur Squamous Epith Cells 0-1 /hpf (0-5/HPF) Amorphous Sediment 2+ Urine Bacteria Few (2-10) H (None) Urine Mucus 2+ H (Negative) Urine Yeast 0-1/hpf (None) Ur Culture Indicated? Specimen cultured Vol Urine Centrifuged 10ml (spun) Urine Dip Bedside Urine Glucose Negative Bedside Urine Bilirubin + 1 Bedside Urine Ketone + 15 Urine Specific [place] 1.015 Bedside Urine Occult Blood ++ Bedside Urine pH 6.0 Bedside Urine Protein +++ 300 Bedside Urine Urobilinogen - Negative Bedside Urine Nitrite - Negative Bedside Urine Leukocytes +/- 15 Esterase Point of care testing: Urine Dip Bedside Urine Glucose Negative Bedside Urine Bilirubin + 1 Bedside Urine Ketone + 15 Urine Specific [place] 1.015 Bedside Urine Occult Blood ++ Bedside Urine pH 6.0 Bedside Urine Protein +++ 300 Bedside Urine Urobilinogen - Negative Bedside Urine Nitrite - Negative Bedside Urine Leukocytes +/- 15 Esterase Imaging Data Chest x-ray: Radiologist's Impression: [place] [address] XRay Report Signed Patient: Samanta Ruvalcaba MR#: [id number] : 1965 Acct:[id number] Age/Sex: 58 / F Date of Service: 11/26/23 Loc: ED Accession Number: [id number] Procedure: XR chest 1V Ordering Provider: Chelsea Hogue D.O. PROCEDURE: XR CHEST 1V INDICATIONS: suspected sepsis TECHNIQUE: One view of the chest was acquired. COMPARISON: [facility], , XR CHEST 2V, 10/22/2019, 16:22. FINDINGS: Surgical changes and devices: None. Lungs and pleura: Lungs are clear. No pleural effusions or pneumothorax. Mediastinum: Mediastinal contours appear normal. Heart size is normal. Bones and chest wall: No suspicious bony lesions. Overlying soft tissues appear unremarkable. IMPRESSION: No acute pulmonary process. Dictated by: Rosemarie Bunch M.D. on 11/26/2023 at 14:00 Approved by: Rosemarie Bunch M.D. on 11/26/2023 at 14:00 CT scan - abdomen/pelvis: Radiologist's Impression: [address] [address] [address] Scan Report Signed Patient: Samanta Ruvalcaba MR#: [id number] : 1965 Acct:[id number] Age/Sex: 58 / F Date of Service: 11/26/23 Loc: ED Accession Number: [id number] Procedure: CT abdomen pelvis w con Ordering Provider: Chelsea Hogue D.O. PROCEDURE: CT ABDOMEN PELVIS W CON INDICATIONS: abd pain, started lower now everywhere, fever, nausea, diarr TECHNIQUE: After the administration of intravenous contrast, axial sections acquired from the lung bases to the pubic symphysis. Coronal and sagittal reformats were performed. For radiation dose reduction, the following was used: automated exposure control, adjustment of mA and/or kV according to patient size. COMPARISON: None. FINDINGS: Image quality: Portions of the lower pelvis are suboptimally evaluated secondary to metallic streak artifact from bilateral hip arthroplasty. Lower Chest: No significant findings. ABDOMEN: Liver: No solid mass. Liver is enlarged measuring 22.2 cm with steatosis. Gallbladder: No radiopaque gallstones or wall thickening. Biliary ducts: No biliary dilation. Pancreas: No ductal dilation. Spleen: Size is within normal limits. Adrenal Glands: No adrenal nodules. Kidneys and Ureters: No hydronephrosis. No solid mass. No complex renal cystic lesion which requires follow up. Stomach and Bowel: Normal colonic caliber, without significant wall thickening. Peritoneum: No abnormal intraperitoneal fluid. No free air. Ventral Wall: No significant ventral hernia. Abdominal Nodes: No retroperitoneal or mesenteric adenopathy by size criteria. Vessels: Aorta and inferior vena cava are normal in size. PELVIS: Pelvic Organs: Unremarkable. Bladder: No bladder wall thickening, accounting for underdistention. Pelvic Nodes: No enlarged lymph nodes. Miscellaneous: No inguinal hernias are seen. Bones: No aggressive osseous abnormality. IMPRESSION: No visualized acute intra-abdominal or pelvic process. Dictated by: Rosemarie Bunch M.D. on 11/26/2023 at 15:06 Approved by: Rosemarie Bunch M.D. on 11/26/2023 at 15:09 [facility] Narrative Medical decision making narrative: White count of 23, hemoglobin of 14 platelets of 223 predominance of neutrophils. INR is 1.1, sodium is 131 potassium 3.7 chloride 98 CO2 23 with a BUN of 17, creatinine 0.62, glucose of 111, lactate 1.6 normal LFTs, lipase of 56 with a procalcitonin 5.66 Blood cultures obtained. Chest x-ray is negative for acute change. Patient has a very small area of erythema, there is no large cellulitis does not seem like most likely source of her infection so CT abdomen pelvis was obtained as patient is quite tender throughout. This shows liver is enlarged 22.2 cm with steatosis no radiopaque gallstones or wall thickening, no acute intra-abdominal or pelvic process noted. Urine shows ketones, blood, protein and leukocyte esterase. Microscopy is negative for bilirubin 0-1 RBCs 0-1 white cells 1 squamous, few bacteria, 2+ mucus, 1 yeast was sent for culture. Patient does meet septic criteria, tachycardic, white count, temperature is 100? F not quite technically temperature but patient is very warm and feels febrile. Patient given 30 cc/kilos bolus of ideal body weight. Was given 2 L total. One had covered with broad-spectrum antibiotics after obtaining labs urine cultures. Attempted to obtain GI panel. Patient is not even sample so far. Patient received 30 cc/kilos bolus, did receive a dose of IV antibiotic. She is febrile here in the department was given dose of Toradol as well as Tylenol. On recheck patient's tachycardia is improving, blood pressures dropped somewhat. Still febrile improving with Tylenol. Spoke with Dr. Vasquez who accepts for [facility]ne. Patient does have a small area of infection on her abdomen could be source was covered with Zosyn and vanco but could be other potential sources as well. Patient was seen by Dr. Vasquez in the department. Discharge Plan Departure Patient Disposition: Admitted as Observation Clinical Impression: Abdominal wall cellulitis, Sepsis Admit Date/Time: 11/26/23 16:54 Admit Provider: Nika Vasquez
[2023-11-26 14:08] LABS: Procalcitonin 5.66 ng/mL (<0.5)
--- NOTE | 2023-11-26 14:14 | DI.CT.S_ITS ---
PROCEDURE: CT ABDOMEN PELVIS W CON INDICATIONS: abd pain, started lower now everywhere, fever, nausea, diarr TECHNIQUE: After the administration of intravenous contrast, axial sections acquired from the lung bases to the pubic symphysis. Coronal and sagittal reformats were performed. For radiation dose reduction, the following was used: automated exposure control, adjustment of mA and/or kV according to patient size. COMPARISON: None. FINDINGS: Image quality: Portions of the lower pelvis are suboptimally evaluated secondary to metallic streak artifact from bilateral hip arthroplasty. Lower Chest: No significant findings. ABDOMEN: Liver: No solid mass. Liver is enlarged measuring 22.2 cm with steatosis. Gallbladder: No radiopaque gallstones or wall thickening. Biliary ducts: No biliary dilation. Pancreas: No ductal dilation. Spleen: Size is within normal limits. Adrenal Glands: No adrenal nodules. Kidneys and Ureters: No hydronephrosis. No solid mass. No complex renal cystic lesion which requires follow up. Stomach and Bowel: Normal colonic caliber, without significant wall thickening. Peritoneum: No abnormal intraperitoneal fluid. No free air. Ventral Wall: No significant ventral hernia. Abdominal Nodes: No retroperitoneal or mesenteric adenopathy by size criteria. Vessels: Aorta and inferior vena cava are normal in size. PELVIS: Pelvic Organs: Unremarkable. Bladder: No bladder wall thickening, accounting for underdistention. Pelvic Nodes: No enlarged lymph nodes. Miscellaneous: No inguinal hernias are seen. Bones: No aggressive osseous abnormality. IMPRESSION: No visualized acute intra-abdominal or pelvic process. Dictated by: Rosemarie Bunch M.D. on 11/26/2023 at 15:06 Approved by: Rosemarie Bunch M.D. on 11/26/2023 at 15:09
[2023-11-26] MEDS: KETOROLAC 30 MG/ML VIAL 15 MG IV (14:29)
[2023-11-26] MEDS: ACETAMINOPHEN 325 MG TABLET 650 MG PO (14:30)
[2023-11-26 14:50] LABS: Ictotest Urine Negative (Negative)
[2023-11-26 14:57] LABS: Urine Volume 10mL (spun)
[2023-11-26 14:58] LABS: Amorphous Sediment Urine 2+; Bacteria Urine Few (2-10); Mucus Urine 2+ (Negative); RBC Urine 0-1/HPF (0-5/HPF); Squamous Epithelial Cell Urine 0-1 /HPF (0-5/HPF); WBC Urine 0-1/HPF (0-5/HPF)
[2023-11-26 14:59] LABS: Culture Indicated Urine Specimen Cultured
[2023-11-26] MEDS: SODIUM CHLORIDE 0.9% 1,641 ML 547 ML IV (15:02)
[2023-11-26] MEDS: PIPERACILLIN/TAZO 4.5 GM in SODIUM CHLORIDE 0.9% 100 ML IV (15:02)
[2023-11-26] MEDS: PANTOPRAZOLE 40 MG VIAL IV (15:02)
[2023-11-26] MEDS: HYDROMORPHONE 0.5 MG INJ IV (15:43)
[2023-11-26] MEDS: VANCOMYCIN 1,250 MG/250 ML PIGGYBACK 250 MG IV (16:57)
--- NOTE | 2023-11-26 17:01 | PM.HP.1 ---
History of Present Illness History of Present Illness Date Patient Seen: 11/26/23 Date of Onset of Symptoms: 11/23/23 Chief complaint: abd cramps, fever t-4 Narrative: 58 yo F with varicose veins and HLD presenting with fevers, nausea, abd pain/cramping. She has had diarrhea as well. She does have a wound on her abdomen which she believes is a spider bite. She felt like somthing bit her last tuesday. The next day she noticed redness developing. This is when she noticed development of nausea and abdominal pain as well. She also noticed fevers and chills developing on that day. At this point, the lesion is erythematous and has been draining for the last few days. Of note she does use cocaine (smokes) recreationally, last use was 5 days ago. She denies IV drug use. Labs in the ER show leukocytosis to 23 with a neutrophilic predominance, an elevated procalcitonin and UA showed proteinuria, hematuria and leuk esterase. CXR Was normal. CT abd/Pelvis showed no acute intra-abdominal process. blood cultures were obtained and are pending. She did recieve IV Zosyn and 30cc/kg bolus for sepsis presumed to be 2/2 abdominal wall cellulitis. [facility] Medical History Fx surg neck humerus-open (~2020) Varicosities of leg Shoulder pain (~2010) Degenerative joint disease (DJD) of lumbar spine Plantar warts (~1971) Chicken pox (~1969) Hyperlipidemia Healthy adult Surgical History Anesthesia Status post wrist surgery (~2001) Status post phlebectomy (~2000) Status post delivery (~1993) Status post sclerotherapy of varicose veins (~1993) History of hip replacement (07/12/07) History of hip replacement (02/10/05) Status post tonsillectomy and adenoidectomy (~1967) Status post delivery (~1990) Family History Father No problems noted. Mother No problems noted. Brother Hypertension Brother Hypertension Brother Hypertension Grandmother Cancer Social History marital status: household members: spouse lives independently: Yes caregiver/support person: No occupational status: employed Smoking Status: Former smoker quit status: quit date established alcohol intake: current substance use type: marijuana (smokes and/or edibles) Meds Home Medications and Allergies Allergies Allergy/AdvReac Type Severity Reaction Status Date / Time erythromycin base Allergy Mild Verified 11/26/23 13:05 morphine Allergy Verified 11/26/23 13:05 Review of Systems Review of Systems Narrative: Review of Systems: Constitutional: Positive for fever and chills. Skin: Negative for rash. Positive for skin lesion Cardiovascular: Negative for chest pain and palpitations. Respiratory: Negative for cough.? Is not experiencing shortness of breath. Gastrointestinal: Positive for nausea and abdominal pain. Negative for vomiting Genitourinary: Negative for dysuria and hematuria. Neurological: Negative for focal weakness and loss of consciousness. All other systems reviewed and are negative. Exam Vital Signs (past 8 hours): - 11/26/23 13:00 11/26/23 13:01 11/26/23 13:30 Temperature 99.0 F 100 F H Pulse Rate 97 H 96 H Respiratory Rate 16 18 Blood Pressure 125/67 118/76 110/65 Pulse Oximetry 100 100 Oxygen Delivery Method Room Air 11/26/23 13:30 11/26/23 14:00 11/26/23 14:00 Temperature Pulse Rate 103 H 103 H Respiratory Rate 22 19 Blood Pressure 111/66 Pulse Oximetry 96 98 Oxygen Delivery Method 11/26/23 14:24 11/26/23 14:28 11/26/23 14:28 Temperature 100.0 F H Pulse Rate 100 H Respiratory Rate 26 H Blood Pressure 145/65 H Pulse Oximetry 99 Oxygen Delivery Method 11/26/23 14:29 11/26/23 14:30 11/26/23 14:30 Temperature 102.5 F H 102.5 F H Pulse Rate 100 H Respiratory Rate 23 Blood Pressure Pulse Oximetry 97 Oxygen Delivery Method 11/26/23 14:31 11/26/23 14:31 11/26/23 14:48 Temperature Pulse Rate 101 H 107 H Respiratory Rate 19 17 Blood Pressure 127/67 Pulse Oximetry 98 100 Oxygen Delivery Method 11/26/23 14:48 11/26/23 15:00 11/26/23 15:00 Temperature Pulse Rate 101 H Respiratory Rate 20 Blood Pressure 138/74 124/66 Pulse Oximetry 97 Oxygen Delivery Method 11/26/23 15:30 11/26/23 15:30 11/26/23 16:00 Temperature Pulse Rate 98 H Respiratory Rate 24 Blood Pressure 113/63 99/60 Pulse Oximetry 96 Oxygen Delivery Method 11/26/23 16:00 11/26/23 16:05 11/26/23 16:06 Temperature 101.8 F H 101.8 F H 101.8 F H Pulse Rate 91 H Respiratory Rate 19 Blood Pressure Pulse Oximetry 96 Oxygen Delivery Method Oxygen Delivery Method Room Air Narrative Exam Narrative: GEN: Healthy appearing, well-developed, NAD. PSYCH: Good Judgment. AOx3. Normal memory, mood, and affect HEENT: -Head: NC/AT -Eyes: No discharge or redness -Nose: Normal nares. -Mouth and throat: MMM CV: warm and well perfused RRR, no murmurs LUNGS: CTAB, no w/r/c. ABD: Soft, ND, NBS, no masses or organomegaly. Mild tenderness to palpation in LLQ and RLQ, non tender in upper quadrants SKIN: Warm, well perfused. No skin rashes. Right mid abdomen with 2cm by 2cm erythematous lesion with purulent discharge. No fluctuance or abscess present MSK: No deformities EXT: No clubbing, cyanosis, or edema NEURO: Ambulating with no limitations. No focal deficits Objective Labs 11/26/23 13:29 11/26/23 13:29 Labs: Laboratory Results - last 24 hr 11/26/23 11/26/23 13:29 14:22 WBC 23.4 H RBC 4.75 Hgb 14.2 Hct 41.4 MCV 87.2 MCH 29.9 MCHC 34.3 RDW 13.6 Plt Count 223 Neut % (Auto) 92.4 H Lymph % (Auto) 2.8 L [place] % (Auto) 4.4 Eos % (Auto) 0.3 L Baso % (Auto) 0.1 Neut # (Auto) 10336 H Lymph # (Auto) 600 L [place] # (Auto) 1000 H Eos # (Auto) 100 Baso # (Auto) 0 PT 12.5 INR 1.1 APTT 35 Sodium 131 L Potassium 3.7 Chloride 98 Carbon Dioxide 23 BUN 17 Creatinine 0.62 Estimated GFR > 60 BUN/Creatinine Ratio 27.4 H Glucose 111 H Lactate 1.6 Calcium 8.7 Total Bilirubin 0.8 AST 22 ALT 19 Alkaline Phosphatase 122 Total Protein 8.0 Albumin 4.1 Globulin 3.9 Albumin/Globulin Ratio 1.1 Lipase 56 Procalcitonin 5.66 H Ur Bilirubin Confirm Negative Urine RBC 0-1/hpf Urine WBC 0-1/hpf Ur Squamous Epith Cells 0-1 /hpf Amorphous Sediment 2+ Urine Bacteria Few (2-10) H Urine Mucus 2+ H Urine Yeast 0-1/hpf Ur Culture Indicated? Specimen cultured Vol Urine Centrifuged 10ml (spun) Assessment & Plan Assessment and plan (1) Abdominal wall cellulitis: Status: Acute Plan 58 yo F with varicose veins and HLD presenting with fevers, nausea, abd pain/cramping. Labs in the ER show leukocytosis to 23 with a neutrophilic predominance, an elevated procalcitonin and UA showed proteinuria, hematuria and leuk esterase. CXR Was normal. CT abd/Pelvis showed no acute intra-abdominal process. blood cultures were obtained and are pending. She did recieve IV Zosyn and 30cc/kg bolus for sepsis presumed to be 2/2 abdominal wall cellulitis. ## Abdominal wall cellulitis - Admit to observation - Continue Abx, ensure MRSA coverage as wound is draining purulent material - Vancomycin + Ceftriaxone - REpeat CBC in the AM ## Abdominal pain: Abdominal CT negative, will treat infection as above and then continue work up if abd pain persists. UA + for bacteria so will treat possible UTI as well with Ceftriaxone as above - cont protonix - Tylenol + Ibuprofen for pain - PRN simethicone DVT ppx: Alissa score of 2, SCDs Diet: general Time-Based Coding :: [TOTAL MINUTES] spent with patient and on the chart (including review of chart, obtaining history, exam, reviewing outside data, placing orders, documenting exam and treatment plan, and counseling patient) on [DATE].
[2023-11-26] MEDS: ACETAMINOPHEN 325 MG TABLET 975 MG PO (20:31)
[2023-11-26] MEDS: SIMETHICONE 80 MG TABLET PO (20:31)
[2023-11-26] MEDS: IBUPROFEN 600 MG TABLET PO (20:32)
[2023-11-26] MEDS: cefTRIAXone 2,000 MG in SODIUM CHLORIDE 0.9% 100 ML 200 MG IV (20:33)
[2023-11-26] MEDS: ALBUTEROL 2.5 MG/3 ML NEB (ADULT) INH (20:47)
[2023-11-26] MEDS: OXYCODONE IR 5 MG TABLET PO (23:27)
[2023-11-27] VITALS: BP 109/63; PULSE 95; RESP 17; TEMP 37.6; O2SAT 97
[2023-11-27] MEDS: SIMETHICONE 80 MG TABLET PO (02:20)
[2023-11-27 04:00] VITALS: BP 105/71; PULSE 84; RESP 18; TEMP 36.8; O2SAT 98
[2023-11-27] MEDS: ACETAMINOPHEN 325 MG TABLET 975 MG PO ×3 (06:17→21:51)
[2023-11-27] MEDS: IBUPROFEN 600 MG TABLET PO ×3 (06:18→21:51)
[2023-11-27] MEDS: OXYCODONE IR 5 MG TABLET PO ×2 (06:18→20:10)
[2023-11-27 06:53] LABS: Acinetobacter calcoa-baumannii Not Detected (Not Detect); Bacteroides fragilis Not Detected (Not Detect); Candida albicans Not Detected (Not Detect); Candida auris Not Detected (Not Detect); Candida glabrata Not Detected (Not Detect); Candida krusei Not Detected (Not Detect); Candida parapsilosis Not Detected (Not Detect); Candida tropicalis Not Detected (Not Detect); Cryptococcus neoformans/gatti Not Detected (Not Detect); Enterobacter cloacae complex Not Detected (Not Detect); Enterobacterales Not Detected (Not Detect); Enterococcus faecalis Not Detected (Not Detect); Enterococcus faecium Not Detected (Not Detect); Haemophilus influenzae Not Detected (Not Detect); Klebsiella aerogenes Not Detected (Not Detect); Listeria monocytogenes Not Detected (Not Detect); Neisseria meningitidis Not Detected (Not Detect); Proteus species Not Detected (Not Detect); Pseudomonas aeruginosa Not Detected (Not Detect); Salmonella species Not Detected (Not Detect); Serratia marcescens Not Detected (Not Detect); Staphylococcus epidermidis Not Detected (Not Detect); Staphylococcus lugdunensis Not Detected (Not Detect); Staphylococcus species Not Detected (Not Detect); Stenotrophomonas maltophilia Not Detected (Not Detect); Streptococcus agalactiae (Gr B Not Detected (Not Detect); Streptococcus pneumonia Not Detected (Not Detect); Streptococcus pyogenes (Gr A) Detected (Not Detect); Streptococcus species Detected (Not Detect)
[2023-11-27] MEDS: VANCOMYCIN 1,250 MG/250 ML PIGGYBACK 250 MG IV ×2 (07:13→18:52)
[2023-11-27 08:00] VITALS: BP 98/70; PULSE 74; RESP 18; TEMP 35.8; O2SAT 98
[2023-11-27 08:26] LABS: Add Manual Diff / Slide Review NO; Basophils Absolute Auto 0 /uL (0-100); Basophils Percent Auto 0.1 % (0-2); Eosinophils Absolute Auto 100 /uL (0-450); Eosinophils Percent Auto 0.4 % (2-4); Hematocrit 33.5 % (36-46); Hemoglobin 11.6 g/dL (12.0-16.0); Lymphocytes Absolute Auto 900 /uL (1100-4500); Mean Corpuscular HGB Conc 34.5 % (30-36); Monocytes Absolute Auto 800 /uL (0-900); Monocytes Percent Auto 4.5 % (3-14); Neutrophils Absolute Auto 16000 /uL (1500-7000); Platelet Count 189 X10^3/uL (150-400); Red Blood Cell Count 3.85 X10^6/uL (4.0-5.2); Red Cell Distribution Width 13.2 % (11.6-14.8); White Blood Cell Count 17.8 X10^3/uL (4.5-11.0)
[2023-11-27] MEDS: SODIUM CHLORIDE 0.9% FLUSH 10 ML IV ×2 (09:04→20:11)
--- NOTE | 2023-11-27 09:54 | PM.PN.1 ---
Subjective Subjective Date Patient Seen: 11/27/23 Time Patient Seen: 09:34 Interval history: 58 yo F admitted for abd paina ndabd wall cellulitis with out abcess. She is doing well this morning, stillnoting lower abd pain but is improved from yesterday. She has had continued loose stools. No fevers. No spreading or redness. No fevers, but does occassionally feel hot Exam Vital Signs (past 8 hours): - 11/27/23 04:00 11/27/23 08:00 Temperature 98.3 F 96.4 F L Pulse Rate 84 74 Respiratory Rate 18 18 Blood Pressure 105/71 98/70 Pulse Oximetry 98 98 Oxygen Flow Rate 0 Oxygen Delivery Method Room Air Oxygen Flow Rate 0 Narrative Exam Narrative: GEN: Healthy appearing, well-developed, NAD. PSYCH: Good Judgment. AOx3. Normal memory, mood, and affect HEENT: -Head: NC/AT -Eyes: No discharge or redness -Nose: Normal nares. -Mouth and throat: MMM CV: warm and well perfused LUNGS: breathing comfortably on RA ABD: Soft, ND, NBS, no masses or organomegaly. SKIN: Warm, well perfused. No skin rashes. bandaid over lesion, no sign of progression or spreading MSK: No deformities EXT: No clubbing, cyanosis, or edema NEURO: Ambulating with no limitations. No focal deficits Objective Labs 11/27/23 08:06 11/26/23 13:29 Labs: Laboratory Results - last 24 hr 11/26/23 11/26/23 11/27/23 13:29 14:22 05:43 WBC 23.4 H RBC 4.75 Hgb 14.2 Hct 41.4 MCV 87.2 MCH 29.9 MCHC 34.3 RDW 13.6 Plt Count 223 Neut % (Auto) 92.4 H Lymph % (Auto) 2.8 L [place] % (Auto) 4.4 Eos % (Auto) 0.3 L Baso % (Auto) 0.1 Neut # (Auto) 79618 H Lymph # (Auto) 600 L [place] # (Auto) 1000 H Eos # (Auto) 100 Baso # (Auto) 0 PT 12.5 INR 1.1 APTT 35 Sodium 131 L Potassium 3.7 Chloride 98 Carbon Dioxide 23 BUN 17 Creatinine 0.62 Estimated GFR > 60 BUN/Creatinine Ratio 27.4 H Glucose 111 H Lactate 1.6 Calcium 8.7 Total Bilirubin 0.8 AST 22 ALT 19 Alkaline Phosphatase 122 Total Protein 8.0 Albumin 4.1 Globulin 3.9 Albumin/Globulin Ratio 1.1 Lipase 56 Procalcitonin 5.66 H Ur Bilirubin Confirm Negative Urine RBC 0-1/hpf Urine WBC 0-1/hpf Ur Squamous Epith Cells 0-1 /hpf Amorphous Sediment 2+ Urine Bacteria Few (2-10) H Urine Mucus 2+ H Urine Yeast 0-1/hpf Ur Culture Indicated? Specimen cultured Vol Urine Centrifuged 10ml (spun) A.calcoaceticus-baumannii cmplx PCR Not detected Bacteroides fragilis Not detected Jennifer albicans (PCR) Not detected Jennifer auris (PCR) Not detected C. glabrata (PCR) Not detected C. krusei (PCR) Not detected C. parapsilosis (PCR) Not detected C. tropicalis (PCR) Not detected C. neoform/gattii (PCR) Not detected Enterobacterales (PCR) Not detected E. cloacae complex PCR Not detected Enterococc faecalis PCR Not detected Enterococc faecium PCR Not detected E. coli (PCR) Not detected H. influenzae (PCR) Not detected Klebsiella aerogenes (PCR) Not detected Klebsiella oxytoca PCR Not detected Klebsiella pneumoniae Not detected List. monocytogenes PCR Not detected N. meningitidis (PCR) Not detected Proteus species (PCR) Not detected Salmonella spp. (PCR) Not detected Serratia marcescens PCR Not detected Staphylococcus sp PCR Not detected Staph aureus (PCR) Not detected mecA/C & MREJ Resist Gene Not applicable mecA/C-Methicil Resis Gene Not applicable mcr-1 Colistin Res Gene PCR Not applicable Staph epidermidis (PCR) Not detected Staph lugdunensis PCR Not detected S. maltophilia (PCR) Not detected Streptococcus sp PCR Detected Group A Strep (PCR) Detected Strep agalactiae (PCR) Not detected Strep pneumoniae (PCR) Not detected P. aeruginosa (PCR) Not detected Rohit/B-Vanco Res Genes Not applicable blaIMP Car res Gene PCR Not applicable KPC-Carbap Res Gene PCR Not applicable blaNDM Car Res Gene PCR Not applicable OXA-48 Carbapenem Resis Gene (PCR) Not applicable blaVIM Car Res Gene PCR Not applicable CTX-M Gene Resistance (PCR) Not applicable 11/27/23 08:06 WBC 17.8 H RBC 3.85 L Hgb 11.6 L Hct 33.5 L MCV 87.0 MCH 30.0 MCHC 34.5 RDW 13.2 Plt Count 189 Neut % (Auto) 90.0 H Lymph % (Auto) 5.0 L [place] % (Auto) 4.5 Eos % (Auto) 0.4 L Baso % (Auto) 0.1 Neut # (Auto) 85147 H Lymph # (Auto) 900 L [place] # (Auto) 800 Eos # (Auto) 100 Baso # (Auto) 0 PT INR APTT Sodium Potassium Chloride Carbon Dioxide BUN Creatinine Estimated GFR BUN/Creatinine Ratio Glucose Lactate Calcium Total Bilirubin AST ALT Alkaline Phosphatase Total Protein Albumin Globulin Albumin/Globulin Ratio Lipase Procalcitonin Ur Bilirubin Confirm Urine RBC Urine WBC Ur Squamous Epith Cells Amorphous Sediment Urine Bacteria Urine Mucus Urine Yeast Ur Culture Indicated? Vol Urine Centrifuged A.calcoaceticus-baumannii cmplx PCR Bacteroides fragilis Jennifer albicans (PCR) Jennifer auris (PCR) C. glabrata (PCR) C. krusei (PCR) C. parapsilosis (PCR) C. tropicalis (PCR) C. neoform/gattii (PCR) Enterobacterales (PCR) E. cloacae complex PCR Enterococc faecalis PCR Enterococc faecium PCR E. coli (PCR) H. influenzae (PCR) Klebsiella aerogenes (PCR) Klebsiella oxytoca PCR Klebsiella pneumoniae List. monocytogenes PCR N. meningitidis (PCR) Proteus species (PCR) Salmonella spp. (PCR) Serratia marcescens PCR Staphylococcus sp PCR Staph aureus (PCR) mecA/C & MREJ Resist Gene mecA/C-Methicil Resis Gene mcr-1 Colistin Res Gene PCR Staph epidermidis (PCR) Staph lugdunensis PCR S. maltophilia (PCR) Streptococcus sp PCR Group A Strep (PCR) Strep agalactiae (PCR) Strep pneumoniae (PCR) P. aeruginosa (PCR) Rohit/B-Vanco Res Genes blaIMP Car res Gene PCR KPC-Carbap Res Gene PCR blaNDM Car Res Gene PCR OXA-48 Carbapenem Resis Gene (PCR) blaVIM Car Res Gene PCR CTX-M Gene Resistance (PCR) [facility] Medical History Fx surg neck humerus-open (~2020) Varicosities of leg Shoulder pain (~2010) Degenerative joint disease (DJD) of lumbar spine Plantar warts (~1971) Chicken pox (~1969) Hyperlipidemia Healthy adult Surgical History Anesthesia Status post wrist surgery (~2001) Status post phlebectomy (~2000) Status post delivery (~1993) Status post sclerotherapy of varicose veins (~1993) History of hip replacement (07/12/07) History of hip replacement (02/10/05) Status post tonsillectomy and adenoidectomy (~1967) Status post delivery (~1990) Family History Father No problems noted. Mother No problems noted. Brother Hypertension Brother Hypertension Brother Hypertension Grandmother Cancer Social History marital status: household members: spouse lives independently: Yes caregiver/support person: No occupational status: employed Smoking Status: Former smoker quit status: quit date established alcohol intake: current substance use type: marijuana (smokes and/or edibles) Assessment & Plan Assessment and plan (1) Abdominal wall cellulitis: Status: Acute (2) Sepsis: Qualifiers: Sepsis type: sepsis due to unspecified organism Sepsis acute organ dysfunction status: without acute organ dysfunction Qualified Code(s): A41.9 - Sepsis, unspecified organism Status: Acute Assessment & Plan narrative: 58 yo F with varicose veins and HLD presenting admitted for abdominal wall cellulitis with sepsis. Labs in the ER show leukocytosis to 23 with a neutrophilic predominance, an elevated procalcitonin and UA showed proteinuria, hematuria and leuk esterase. CXR Was normal. CT abd/Pelvis showed no acute intra-abdominal process. blood cultures were obtained and are growing 2/2 gram positive cocci. She did recieve IV Zosyn and 30cc/kg bolus for sepsis presumed to be 2/2 abdominal wall cellulitis. ## Abdominal wall cellulitis: growing gram positive cocci in chains in 2/2 blood cultures - Admit to observation - Continue Abx, ensure MRSA coverage as wound is draining purulent material - Vancomycin + Ceftriaxone for now - Once blood cultures finalize, will adjust Abx accordingly - Repeat CBC in the AM ## Abdominal pain: Abdominal CT negative, will treat infection as above and then continue work up if abd pain persists. UA + for bacteria so will treat possible UTI as well with Ceftriaxone as above. - cont protonix - Tylenol + Ibuprofen for pain - PRN Oxy added for pain beyond Tylenol and ibuprofen - PRN Vistaril for pain augmentation - PRN simethicone DVT ppx: Alissa score of 2, SCDs Diet: general Time-Based Coding :: 32 spent with patient and on the chart (including review of chart, obtaining history, exam, reviewing outside data, placing orders, documenting exam and treatment plan, and counseling patient) on 11/27/23.
[2023-11-27 10:18] LABS: Adenovirus F 40/41 Not Detected (Not Detect); Astrovirus Not Detected (Not Detect); Campylobacter Not Detected (Not Detect); Clostridium difficile toxin AB Not Detected (Not Detect); Cryptosporidium Not Detected (Not Detect); Cyclospora cayetanensis Not Detected (Not Detect); Entamoeba histolytica Not Detected (Not Detect); Enteroaggregative E.coli Not Detected (Not Detect); Enteropathogenic E.coli Not Detected (Not Detect); Enterotoxigenic E.coli It/st Not Detected (Not Detect); Giardia lamblia Not Detected (Not Detect); Norovirus GI/GII Not Detected (Not Detect); Plesiomonsa shigelloides Not Detected (Not Detect); Rotavirus A Not Detected (Not Detect); Salmonella Not Detected (Not Detect); Sapovirus Not Detected (Not Detect); Shiga-like toxin-prod E.coli Not Detected (Not Detect); Shigella/Enteroinvasive E.coli Not Detected (Not Detect); Vibrio Not Detected (Not Detect); Vibrio cholerae Not Detected (Not Detect); Yersinia enterocolitica Not Detected (Not Detect)
[2023-11-27] MEDS: hydrOXYzine HCL 25 MG TABLET 50 MG PO (10:55)
[2023-11-27 12:00] VITALS: BP 102/65; PULSE 76; RESP 18; TEMP 36.2; O2SAT 97
--- NOTE | 2023-11-27 15:53 | CM.DANOTE ---
DCP Assessment Note brief Pt is a 58yo F here with cellulites in her abdominal wall, pt suspects from a spider bite. PCP Katarzyna Sawant. [facility] and self pay TRAFFIC EXPERT reviewed EMR. Per chart review, pt lives with spouse in [place] and works at [employer]. Indep at baseline. Per provider, cultures pending for antibiotic plan. likely will have no CM/DCP needs. TRAFFIC EXPERT unable to meet with pt today due to triaging needs. P: anticipate home with spouse when medically stable. 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 RADHA Vicente Discharge Planning/Care Management CM Discharge Assessment Start: 11/27/23 15:52 Freq: Status: Active Protocol: Document 11/27/23 15:52 (Rec: 11/27/23 15:53 [id number]) Discharge Planning Assessment Assigned Wafer Mounter RADHA Peguero DPOA/Assigned Designee Name [email or web address] Contact Information [phone] Advance Directives? No History Provided By Patient Prior Living Arrangements House Household Members spouse Type of transporation used prior to Drives own vehicle admit Independent with ADL's Yes Is patient alert and oriented? Yes Barriers to Discharge No Discharge Plan Home Transportation Arrangement likely family Referrals Initiated None needed Whiteboard Updated in Patient Room with No name and ext. # of Wafer Mounter Review Status In Process Please Provide Date Initial DC 11/27/23 Assessment Was Performed Next Review Type Continued Stay Review
[2023-11-27 16:00] VITALS: BP 132/74; PULSE 65; RESP 17; TEMP 36.1; O2SAT 99
[2023-11-27 20:00] VITALS: BP 121/84; PULSE 84; RESP 17; TEMP 36.9; O2SAT 98
[2023-11-27] MEDS: cefTRIAXone 2,000 MG in SODIUM CHLORIDE 0.9% 100 ML 200 MG IV (20:11)
[2023-11-28] VITALS: BP 110/71; PULSE 84; RESP 17; TEMP 37.4; O2SAT 98
[2023-11-28 04:00] VITALS: BP 135/82; PULSE 83; RESP 17; TEMP 36.2; O2SAT 97
[2023-11-28 06:47] LABS: Add Manual Diff / Slide Review NO; Basophils Absolute Auto 0 /uL (0-100); Basophils Percent Auto 0.2 % (0-2); Eosinophils Absolute Auto 200 /uL (0-450); Hematocrit 33.7 % (36-46); Hemoglobin 11.5 g/dL (12.0-16.0); Lymphocytes Absolute Auto 1000 /uL (1100-4500); Lymphocytes Percent Auto 5.6 % (25-40); Mean Corpuscular HGB Conc 34.3 % (30-36); Mean Corpuscular Hemoglobin 29.7 PG (26-34); Mean Corpuscular Volume 86.7 fL (80-100); Monocytes Absolute Auto 1000 /uL (0-900); Monocytes Percent Auto 5.7 % (3-14); Neutrophils Absolute Auto 15100 /uL (1500-7000); Neutrophils Percent Auto 87.5 % (50-75); Platelet Count 242 X10^3/uL (150-400); Red Blood Cell Count 3.88 X10^6/uL (4.0-5.2); Red Cell Distribution Width 13.5 % (11.6-14.8); White Blood Cell Count 17.3 X10^3/uL (4.5-11.0)
[2023-11-28 07:13] LABS: Vancomycin Trough 7.3 ug/mL (10-20)
[2023-11-28] MEDS: VANCOMYCIN TROUGH 1 REQUEST MISC (07:29)
[2023-11-28] MEDS: VANCOMYCIN 1,250 MG/250 ML PIGGYBACK 250 MG IV (07:32)
[2023-11-28] MEDS: SODIUM CHLORIDE 0.9% FLUSH 10 ML IV ×2 (07:33→20:19)
[2023-11-28 08:00] VITALS: BP 114/75; PULSE 83; RESP 20; TEMP 36.2; O2SAT 96
--- NOTE | 2023-11-28 08:21 | PM.PN.1 ---
Subjective Subjective Date Patient Seen: 11/28/23 Time Patient Seen: 08:21 Interval history: Patient seen in follow-up of sepsis and abdominal wall cellulitis. Maybe secondary to spider bite. Unknown. Patient otherwise feeling better today. Still not feeling great. Not as dizzy. Pain is gone. And otherwise is feeling pretty well. Exam Vital Signs (past 8 hours): - 11/28/23 04:00 Temperature 97.2 F L Pulse Rate 83 Respiratory Rate 17 Blood Pressure 135/82 Pulse Oximetry 97 Oxygen Flow Rate 0 Oxygen Delivery Method Room Air Oxygen Flow Rate 0 Narrative Exam Narrative: Alert female in no acute distress mild fatigue in appearance. HEENT exam mucous membranes moist neck supple without adenopathy lungs are clear heart is regular rate and rhythm. Abdomen is soft positive bowel sounds nontender. Skin over abdomen shows small wound right side but no cellulitis or tenderness. Extremities normal. Objective Labs 11/28/23 06:25 11/26/23 13:29 Labs: Laboratory Results - last 24 hr 11/27/23 11/27/23 11/28/23 08:06 08:52 06:25 WBC 17.8 H 17.3 H RBC 3.85 L 3.88 L Hgb 11.6 L 11.5 L Hct 33.5 L 33.7 L MCV 87.0 86.7 MCH 30.0 29.7 MCHC 34.5 34.3 RDW 13.2 13.5 Plt Count 189 242 Neut % (Auto) 90.0 H 87.5 H Lymph % (Auto) 5.0 L 5.6 L [place] % (Auto) 4.5 5.7 Eos % (Auto) 0.4 L 1.0 L Baso % (Auto) 0.1 0.2 Neut # (Auto) 31236 H 07232 H Lymph # (Auto) 900 L 1000 L [place] # (Auto) 800 1000 H Eos # (Auto) 100 200 Baso # (Auto) 0 0 Stl C. cayetanensis PCR Not detected Stool Rotavirus (PCR) Not detected Stool Adenovirus (PCR) Not detected Stool Astrovirus (PCR) Not detected Stool Cryptosporidium PCR Not detected Stl E.coli Shiga Tox PCR Not detected St Sh/Enteroin Ecoli PCR Not detected Stl Enterotoxigenic E PCR Not detected Stool EPEC (PCR) Not detected Stl E. histolytica PCR Not detected Stool Giardia Lamblia PCR Not detected Stool Sapovirus (PCR) Not detected Stl P. shigelloides PCR Not detected St Y.enterocolitica PCR Not detected Stool Vibrio (PCR) Not detected Stl Vibrio cholerae PCR Not detected Stl Enteroaggr Ecoli PCR Not detected Stl Norovirus GI/GII PCR Not detected Vancomycin Trough 7.3 L Campylobacter (PCR) Not detected C. difficile Tox (PCR) Not detected Salmonella (PCR) Not detected PFSH Medical History Fx surg neck humerus-open (~2020) Varicosities of leg Shoulder pain (~2010) Degenerative joint disease (DJD) of lumbar spine Plantar warts (~1971) Chicken pox (~1969) Hyperlipidemia Healthy adult Surgical History Anesthesia Status post wrist surgery (~2001) Status post phlebectomy (~2000) Status post delivery (~1993) Status post sclerotherapy of varicose veins (~1993) History of hip replacement (07/12/07) History of hip replacement (02/10/05) Status post tonsillectomy and adenoidectomy (~1967) Status post delivery (~1990) Family History Father No problems noted. Mother No problems noted. Brother Hypertension Brother Hypertension Brother Hypertension Grandmother Cancer Social History marital status: household members: spouse lives independently: Yes caregiver/support person: No occupational status: employed Smoking Status: Former smoker quit status: quit date established alcohol intake: current substance use type: marijuana (smokes and/or edibles) Assessment & Plan Assessment & Plan narrative: Cellulitis. Abdomen. Much improved. Cultures showing Gram-positive should be getting ID and sensitivities today. Seems to be slowly improving white count is down but stable. Will see what bug grows. Patient has been afebrile and otherwise slowly feeling better. Hoping we can continue IV today and switch to oral once we have sensitivities tomorrow and go home will see how things go. No other change. Sepsis. Vital signs are all stable. Afebrile. Feeling much better. Appears to be resolved. Will continue to follow. Abdominal pain. Negative CT scan. Probably secondary to infection. Question UTI but doubt significant as far as the pain goes. Will continue to treat. Doing well. Much improved. UTI. Awaiting culture but on antibiotics should be covered. Will follow. DVT on SCDs. Diet general. Code status full. 55 minutes spent with the patient nursing chart review Time-Based Coding :: [TOTAL MINUTES] spent with patient and on the chart (including review of chart, obtaining history, exam, reviewing outside data, placing orders, documenting exam and treatment plan, and counseling patient) on [DATE].
[2023-11-28] MEDS: IBUPROFEN 600 MG TABLET PO ×2 (09:38→21:32)
[2023-11-28 11:23] VITALS: BP 125/84; PULSE 91; RESP 16; TEMP 36.8; O2SAT 97
[2023-11-28] MEDS: CLINDAMYCIN 150 MG CAPSULE 300 MG PO ×2 (15:05→20:19)
--- NOTE | 2023-11-28 16:29 | CM.DPNOTE ---
DCP Note SHOWER ATTENDANT reviewed EMR. Per chart review, Vibha has cultures pending for abx plan. In afternoon, pt was switched to PO abx. Per chart review/nursing staff, no new CM needs identified at this time. P: anticipate home with spouse when medically stable on PO abx. CM team will follow closely in the even of new DCP/CM needs. RADHA Vicente
[2023-11-28 17:07] VITALS: BP 123/78; PULSE 88; RESP 17; TEMP 36.6; O2SAT 98
[2023-11-28 20:00] VITALS: BP 121/84; PULSE 93; RESP 19; TEMP 36.3; O2SAT 99
[2023-11-28] MEDS: PENICILLIN VK 250 MG TABLET 500 MG PO (20:19)
[2023-11-29] VITALS: BP 125/78; PULSE 87; RESP 16; TEMP 36.3; O2SAT 97
[2023-11-29 04:00] VITALS: BP 136/85; PULSE 88; RESP 16; TEMP 36.2; O2SAT 97
[2023-11-29 04:52] LABS: Hematocrit 32.5 % (36-46); Hemoglobin 11.2 g/dL (12.0-16.0); Mean Corpuscular HGB Conc 34.5 % (30-36); Mean Corpuscular Hemoglobin 29.7 PG (26-34); Mean Corpuscular Volume 86.2 fL (80-100); Platelet Count 293 X10^3/uL (150-400); Red Blood Cell Count 3.78 X10^6/uL (4.0-5.2); Red Cell Distribution Width 13.5 % (11.6-14.8)
[2023-11-29 04:54] LABS: Add Manual Diff / Slide Review YES
[2023-11-29 04:56] LABS: Alanine Aminotransferase 14 IU/L (<35); Albumin Globulin Ratio 0.9 (1.0-2.8); Alkaline Phosphatase 104 U/L (38-126); Aspartate Aminotransferase 17 IU/L (14-36); BUN Creatinine Ratio 8.7 (6-22); Bilirubin Total 0.3 mg/dL (0.2-1.3); Blood Urea Nitrogen 4 mg/dL (7-17); Calcium 7.7 mg/dL (8.4-10.2); Carbon Dioxide 29 mmol/L (22-32); Chloride 106 mmol/L (98-107); Estimated Glomerular Filt Rate > 60 mL/min (>60); Globulin 3.2 g/dL (1.7-4.1); Glucose 107 mg/dL (80-110); HEMOLYSIS < 15 (0-50); Sodium 139 mmol/L (137-145); Total Protein 6.2 g/dL (6.3-8.2)
[2023-11-29 05:12] LABS: Neutrophils Absolute Manual 10660 /uL (3000-5900); RBC Morphology Normal Morphology; Total Cells Counted 100
[2023-11-29 08:00] VITALS: BP 119/89; PULSE 89; RESP 20; TEMP 36.6; O2SAT 98
--- NOTE | 2023-11-29 08:29 | CM.DPNOTE ---
DCP note INSOLE LIP TURNER reviewed EMR. Per Dr. Dunne, pt will be discharging home today on PO abx. No needs from his perspective. P: anticipate home with spouse support today. No identified barriers to safe return home. CM team will follow as needed. Riya Moy, RADHA
--- NOTE | 2023-11-29 08:31 | P.DS_ITS ---
History of Present Illness History of Present Illness Date Patient Seen: 11/29/23 Time Patient Seen: 08:31 Date of Onset of Symptoms: 11/23/23 Chief complaint: abd cramps, fever t-4 Narrative: 58 yo F with varicose veins and HLD presenting with fevers, nausea, abd pain/cramping. She has had diarrhea as well. She does have a wound on her abdomen which she believes is a spider bite. She felt like somthing bit her last tuesday. The next day she noticed redness developing. This is when she noticed development of nausea and abdominal pain as well. She also noticed fevers and chills developing on that day. At this point, the lesion is erythematous and has been draining for the last few days. Of note she does use cocaine (smokes) recreationally, last use was 5 days ago. She denies IV drug use. Labs in the ER show leukocytosis to 23 with a neutrophilic predominance, an elevated procalcitonin and UA showed proteinuria, hematuria and leuk esterase. CXR Was normal. CT abd/Pelvis showed no acute intra-abdominal process. blood cultures were obtained and are pending. She did recieve IV Zosyn and 30cc/kg bolus for sepsis presumed to be 2/2 abdominal wall cellulitis. Discharge Providers Provider Date of admission: 11/26/23 16:54 Discharge Date: 11/29/23 Primary care physician: LUDWIG Almanza Discharge provider: River Dunne MD Summary Hospital Course Discharge Diagnosis: Strep pyogenes bacteremia Cellulitis abdomen Hypokalemia Sepsis Abdominal pain UTI Hospital Course: Strep pyogenes sepsis. Probable cause of illness and sepsis. Patient responded well to hydration. Was immediately placed on high-dose antibiotics. In the end was placed on Rocephin vanco. Patient improved rapidly with decreased fevers and white coat slowly improving. Cause appeared to be cellulitis. CT scan for abdominal pain was unremarkable. And she otherwise had no further symptoms. It appeared to resolve over the course of the 24 hours to 48 hours. 24 hours prior to discharge after cultures were obtained and sensitivities she was placed on clindamycin and penicillin will be placed on this for 10 days. Will be followed as an outpatient. Cellulitis abdomen felt to be original cause. Markedly improved over the course of 48 hours. In fact was completely resolved on time of discharge. Was started on Rocephin and vancomycin was switched to oral clindamycin and penicillin and will be followed as an outpatient. Abdominal pain. Appears to be secondary to abdominal wall issues CT scan was negative white count improved no evidence of liver or other changes. Will be followed as outpatient. Hypokalemia. Noticed on day of discharge. Was given 1 dose of potassium and will be given 7 days of outpatient and will follow up on Tuesday with blood draw. UTI. Actually culture did not grow anything specific. And was felt to be contaminant. No other change. 35 minutes spent with the patient nursing orders dictation Exam Vital Signs (past 8 hours): - 11/29/23 04:00 Temperature 97.2 F L Pulse Rate 88 Respiratory Rate 16 Blood Pressure 136/85 Pulse Oximetry 97 Oxygen Flow Rate 0 Oxygen Delivery Method Room Air Oxygen Flow Rate 0 Narrative Exam Narrative: Alert female in no acute distress fatigued in appearance because I woke her up Lungs are clear heart is regular rate and rhythm abdomen is soft positive bowel sounds nontender no erythema on abdominal wall. Neurologic exam is nonfocal Objective Labs 11/29/23 04:00 11/29/23 04:00 Labs: Laboratory Results - last 24 hr 11/27/23 11/29/23 05:43 04:00 WBC 13.0 H RBC 3.78 L Hgb 11.2 L Hct 32.5 L MCV 86.2 MCH 29.7 MCHC 34.5 RDW 13.5 Plt Count 293 Neut % (Auto) Not Reportable Lymph % (Auto) Not Reportable [place] % (Auto) Not Reportable Eos % (Auto) Not Reportable Baso % (Auto) Not Reportable Lymph # (Auto) Not Reportable [place] # (Auto) Not Reportable Baso # (Auto) Not Reportable Total Counted 100 Seg Neutrophils % 80.0 H Band Neutrophils % 2.0 L Lymphocytes % (Manual) 10.0 L Monocytes % (Manual) 7.0 Basophils % (Manual) 1.0 Neutrophils # (Manual) 02366 H RBC Morphology Normal morphology Sodium 139 Potassium 3.0 L Chloride 106 Carbon Dioxide 29 BUN 4 L Creatinine 0.46 L Estimated GFR > 60 BUN/Creatinine Ratio 8.7 Glucose 107 Calcium 7.7 L Total Bilirubin 0.3 AST 17 ALT 14 Alkaline Phosphatase 104 Total Protein 6.2 L Albumin 3.0 L Globulin 3.2 Albumin/Globulin Ratio 0.9 L A.calcoaceticus-baumannii cmplx PCR Not detected Bacteroides fragilis Not detected Jennifer albicans (PCR) Not detected Jennifer auris (PCR) Not detected C. glabrata (PCR) Not detected C. krusei (PCR) Not detected C. parapsilosis (PCR) Not detected C. tropicalis (PCR) Not detected C. neoform/gattii (PCR) Not detected Enterobacterales (PCR) Not detected E. cloacae complex PCR Not detected Enterococc faecalis PCR Not detected Enterococc faecium PCR Not detected E. coli (PCR) Not detected H. influenzae (PCR) Not detected Klebsiella aerogenes (PCR) Not detected Klebsiella oxytoca PCR Not detected Klebsiella pneumoniae Not detected List. monocytogenes PCR Not detected N. meningitidis (PCR) Not detected Proteus species (PCR) Not detected Salmonella spp. (PCR) Not detected Serratia marcescens PCR Not detected Staphylococcus sp PCR Not detected Staph aureus (PCR) Not detected mecA/C & MREJ Resist Gene Not applicable mecA/C-Methicil Resis Gene Not applicable mcr-1 Colistin Res Gene PCR Not applicable Staph epidermidis (PCR) Not detected Staph lugdunensis PCR Not detected S. maltophilia (PCR) Not detected Streptococcus sp PCR Detected Group A Strep (PCR) Detected Strep agalactiae (PCR) Not detected Strep pneumoniae (PCR) Not detected P. aeruginosa (PCR) Not detected Rohit/B-Vanco Res Genes Not applicable blaIMP Car res Gene PCR Not applicable KPC-Carbap Res Gene PCR Not applicable blaNDM Car Res Gene PCR Not applicable OXA-48 Carbapenem Resis Gene (PCR) Not applicable blaVIM Car Res Gene PCR Not applicable CTX-M Gene Resistance (PCR) Not applicable [facility] Medical History Fx surg neck humerus-open (~2020) Varicosities of leg Shoulder pain (~2010) Degenerative joint disease (DJD) of lumbar spine Plantar warts (~1971) Chicken pox (~1969) Hyperlipidemia Healthy adult Surgical History Anesthesia Status post wrist surgery (~2001) Status post phlebectomy (~2000) Status post delivery (~1993) Status post sclerotherapy of varicose veins (~1993) History of hip replacement (07/12/07) History of hip replacement (02/10/05) Status post tonsillectomy and adenoidectomy (~1967) Status post delivery (~1990) Family History Father No problems noted. Mother No problems noted. Brother Hypertension Brother Hypertension Brother Hypertension Grandmother Cancer Social History marital status: household members: spouse lives independently: Yes caregiver/support person: No occupational status: employed Smoking Status: Former smoker quit status: quit date established alcohol intake: current substance use type: marijuana (smokes and/or edibles) Discharge Assessment & Plan Assessment and Plan Assessment: Improved Plan of Treatment: Discharge home Discharge Plan Discharge Plan Patient Disposition: Home Discharge orders & Medications Prescriptions: New penicillin V potassium 250 mg Tablet 500 mg PO BID Qty: 20 0RF clindamycin HCl 150 mg Capsule 300 mg PO TID Qty: 30 0RF potassium chloride 20 mEq packet 20 meq PO DAILY Qty: 7 0RF Follow up/Referrals: Katrazyna Dunne ARNP [Primary Care Provider] - 12/05/23 (Please call for appointment) Discharge Health Status Multidrug resistant organism: No MDRO Diet/Activity/Treatments Diet: Diet as Tolerated Activity: As tolerated Skin/Wound/Dressing Care Report to your healthcare provider any signs of infection, such as:: chills, fever, increased pain, unusual drainage and unusual redness Visit Report/Discharge Packet Stand Alone Forms: Patient Portal/API, Stroke Signs & Symptoms Discharge Data Primary Care Provider: Katarzyna Dunne
[2023-11-29] MEDS: PENICILLIN VK 250 MG TABLET 500 MG PO (08:41)
[2023-11-29] MEDS: POTASSIUM CHLORIDE 20 MEQ TAB 40 MEQ PO (08:41)
[2023-11-29] MEDS: CLINDAMYCIN 150 MG CAPSULE 300 MG PO (08:41)
--- NOTE | 2023-11-29 10:34 | PC.NURSE ---
Patient is A&OX4, VSS afebrile on RA. Her only c/o is a mild headache lingering from yesterday. She is eager to discharge home today and is cleared for discharge at bedside by MD River Dunne with oral antibiotics and potassium sent to [facility] pharmacy in [place]. She verbalizes understanding of medications, and worsening symptoms, and plans to stop by MD office to change appointment and get work clearance note until follow up appointment. She is escorted via w/ch by RN with all of her belongings at approximately 1000 a.m. to private vehicle with her son for discharge home today.
--- NOTE | 2023-11-30 10:38 | PC.WOUNDPHOT ---
Late Entry: Wound photos taken 11/27/23 at 0229.
== END 2023-11-29 10:00 | disposition home or self-care (01) | DRG 872 ==
LOC: ED 16:53 → AC 11-27 12:39
PROVIDERS: Admitting Provider Family Medicine; Emergency Provider Emergency Medicine; Family Provider Internal Medicine; PCP Internal Medicine; Referring Provider Emergency Medicine; Visit Provider Family Medicine
DX: A40.0 Sepsis due to streptococcus, group A (principal); L03.311 Cellulitis of abdominal wall; N39.0 Urinary tract infection, site not specified; E87.6 Hypokalemia
CPT/HCPCS: 36415; 71045; 74177; 80053; 80202; 81003; 81015; 83605; 83690; 84145; 85007; 85025; 85610; 85730; 87040; 87077; 87086; 87147; 87154; 87186; 87507; 94640; 96365; 96367; 96375; 99285; A9270; J0696; J1170; J1885; J2405; J2470; J2543; J7613; Q9967

== ENCOUNTER → 2023-12-08 16:20 | Outpatient (ROUT) | payer OTHER, SELFPAY ==
[2023-11-26 20:41] VITALS: BMI 32.5
[2023-12-08 17:01] LABS: Influenza A - CEPHEID Flu A NEGATIVE (NEGATIVE); Influenza B - CEPHEID Flu B NEGATIVE (NEGATIVE); Respiratory Syncytial Virus Negative (Negative)
[2023-12-08 17:09] LABS: COVID-19 CEPHEID 4-PLEX PCR POSITIVE (Negative)
== END ==
PROVIDERS: Family Provider Internal Medicine; PCP Internal Medicine; Visit Provider Registered Nurse
DX: R50.9 Fever, unspecified (principal)
CPT/HCPCS: 0241U

== ENCOUNTER → 2024-01-09 | Outpatient (CLI) | payer OTHER, SELFPAY ==
[2023-11-26 20:41] VITALS: BMI 32.5
--- NOTE | 2024-01-09 | DI.MG.S_ITS ---
BILATERAL DIGITAL SCREENING MAMMOGRAM 3D/2D WITH CAD: 01/09/2024 CLINICAL: Routine screening. Comparison is made to exams dated: 06/01/2021 mammogram, 06/12/2018 mammogram, and 05/06/2017 mammogram - [facility]. There are scattered areas of fibroglandular density in both breasts (category b / 25%-50% glandular tissue). Current study was also evaluated with a Computer Aided Detection (CAD) system. No significant masses, calcifications, or other findings are seen in either breast. There has been no significant interval change. IMPRESSION: NEGATIVE There is no mammographic evidence of malignancy. A 1 year screening mammogram is recommended. Based on the Tyrer Cuzick model (a risk assessment model) the patient's lifetime risk is 7.7% and her 10 year risk is 3.1%. According to the ACR, ACS, and NCCN guidelines, an annual breast MRI exam along with mammogram is recommended if the patient's lifetime risk is 20% or greater. This exam was interpreted at Station ID: [id number]. NOTE: For mammograms, a report in lay terms will be sent to the patient. Approximately 15% of breast malignancies will not be visualized mammographically. In the management of a palpable breast mass, a negative mammogram must not discourage biopsy of a clinically suspicious lesion. Electronically Signed By: Sabine Castro M.D., Ph.D. michelle/ced:01/11/2024 12:51:29 letter sent: Normal Exam ACR BI-RADS Category 1: Negative [id number]
== END ==
LOC: MAMMO 13:07
PROVIDERS: Family Provider Internal Medicine; PCP Internal Medicine; Referring Provider Internal Medicine; Visit Provider Internal Medicine
DX: Z12.31 Encounter for screening mammogram for malignant neoplasm of breast (principal); R92.323 Mammographic fibroglandular density, bilateral breasts
CPT/HCPCS: 77063; 77067

== ENCOUNTER → 2024-05-09 11:41 | Outpatient (CLI) | payer OTHER, SELFPAY ==
[2023-11-26 20:41] VITALS: BMI 32.5
--- NOTE | 2024-05-09 | DI.RAD.S_ITS ---
PROCEDURE: XR FOOT RT MIN 3V INDICATIONS: right heel pain TECHNIQUE: 3 views of the foot were acquired. COMPARISON: None. FINDINGS: Bones: No fractures or dislocations. No suspicious bony lesions. Achilles calcaneal and plantar calcaneal enthesopathy. Diffuse osseous demineralization. Soft tissues: No tibiotalar joint effusion. Achilles tendon appears normal. IMPRESSION: Radiographic findings suggestive of Achilles tendinosis and plantar fasciitis. Dictated by: Devendra Keane M.D. on 05/09/2024 at 20:10 Approved by: Devendra Keane M.D. on 05/09/2024 at 20:10
== END ==
PROVIDERS: Family Provider Internal Medicine; PCP Internal Medicine; Referring Provider Internal Medicine; Visit Provider Internal Medicine
DX: M77.31 Calcaneal spur, right foot (principal); M79.671 Pain in right foot
CPT/HCPCS: 73630

== ENCOUNTER → 2024-09-18 16:09 | Outpatient (CLI) | payer OTHER, SELFPAY ==
[2023-11-26 20:41] VITALS: BMI 32.5
--- NOTE | 2024-09-18 16:11 | DI.RAD.S_ITS ---
PROCEDURE: XR HIP LT 2V INDICATIONS: L HIP PAIN TECHNIQUE: AP pelvis and lateral view of the hip acquired. COMPARISON: [facility], , XR PELVIS 1-2V, 06/14/2023, 17:11. FINDINGS: Bones: Bilateral hip arthroplasties. Visualized is intact without hardware fracture or periprosthetic lucency to suggest loosening. Alignment is stable. Soft tissues: Overlying postoperative changes are noted. No suspicious soft tissue densities. IMPRESSION: Stable appearance of bilateral arthroplasties. Dictated by: Rosemarie Bunch M.D. on 09/18/2024 at 20:34 Approved by: Rosemarie Bunch M.D. on 09/18/2024 at 20:34
== END ==
PROVIDERS: Family Provider Internal Medicine; PCP Family Medicine; Referring Provider Family Medicine; Visit Provider Family Medicine
DX: M25.552 Pain in left hip (principal); G89.29 Other chronic pain; Z96.643 Presence of artificial hip joint, bilateral
CPT/HCPCS: 73502